=== PATIENT | female | born 2000 | race Caucasian/White ===

== ENCOUNTER 2022-08-06 21:06 | Outpatient (OUT) | payer OTHER, SELFPAY ==
[2022-08-09 11:09] LABS: Age Gdln ACOG Testing Note (.); IGP, rfx Aptima HPV ASCU Note (.)
== END 2022-08-06 21:07 | disposition home or self-care (01) ==
PROVIDERS: PCP Obstetrics & Gynecology; Visit Provider Obstetrics & Gynecology
DX: Z12.4 Encounter for screening for malignant neoplasm of cervix (principal)
CPT/HCPCS: G0145

== ENCOUNTER 2023-10-06 20:42 | Outpatient (REF) | payer OTHER, SELFPAY | END 2023-10-06 20:43 | disposition home or self-care (01) | LOC: LAB 20:42 | PROVIDERS: PCP Obstetrics & Gynecology; Visit Provider Physician Assistant | DX: Z01.419 Encounter for gynecological examination (general) (routine) without abnormal findings (principal) | CPT/HCPCS: 88175 ==

== ENCOUNTER 2023-10-11 13:57 | Outpatient (OUT) | payer OTHER, SELFPAY ==
--- NOTE | 2023-10-11 | US_ITS ---
The [address] [address] Patient Name: RENETTA REDDING MRN: [id number] date: 2000 Sex: F Assigned Patient Location: Current Patient Location: Accession/Order Number: [id number] Exam Date: 10/11/2023 14:09 Report Date: 10/15/2023 06:43 At the request of: ERASMO ALMENDAREZ Procedure: US pelvis w/ transvaginal EXAMINATION: US pelvis w/ transvaginal HISTORY: R10.2 Pelvic pain in female COMPARISON: No relevant comparison available. TECHNIQUE: Transabdominal and/or transvaginal sonographic examination was performed as indicated by examination type. FINDINGS: UTERUS: Normal size and appearance. Uterus size: 7.4 x 3.2 with 3.6 cm ENDOMETRIUM: Normal homogeneous appearance. Endometrial thickness: 2 mm RIGHT OVARY: Normal size and appearance. Duplex Doppler demonstrates normal waveform and flow; resistive index 0.5. Ovary size: 2.2 x 1.3 x 1.8 cm LEFT OVARY: Not seen; obscured by overlying bowel gas. Questionable slightly prominent vessels within left adnexa. CUL-DE-SAC: Trace amount of free fluid, likely physiologic. BLADDER: Unremarkable. OTHER: None. US/US pelvis w/ transvaginal IMPRESSION: 1. Left ovary was not seen; obscured by overlying bowel gas. 2. Otherwise unremarkable pelvis. Electronically authenticated by: EREN JACKSON Date: 10/15/2023 06:43
--- OUTSIDE RECORDS SUMMARY | 2023-10-11 13:59 | XMS_ITS | CCD ---
Author Organization [facility] Inform ion Partnership [facility] Care Team Providers Care X Ray Equipment Servicer Name Role Phone RODY, DR BURT Primary Care Unavailable SAGE, DR ROSSI Admitting Unavailable SAGE, DR ROSSI Consulting Unavailable SAGE, DR ROSSI Attending Unavailable HEMMER, DR SRINATH Oliveira Attending Unavailable RODY, DR BURT Primary Care Unavailable HEMMER, DR SRINATH Oliveira Admitting Unavailable HEMMER, DR SRINATH Oliveira Consulting Unavailable EARLE, SUSIE Oliveira Attending Unavailable HEMMER, SRINATH Oliveira Attending Unavailable EARLE, SUSIE Oliveira Attending Unavailable ERICKSONERASMO Attending Unavailable Problems Active Problems Problem Classification Problem Date Documented Date Episodic/Chronic Headache; including migraine (1 source) Migraine, unspecified, not intractable, without status migrainosus; Translations: [MIGRAINE UNS NOT INTRACT W/O SM] Onset: 10-23-2020 Chronic Immunizations and screening for infectious disease (1 source) Encounter for screening for human papillomavirus (HPV); Translations: [ENC SCREENING HUMAN PAPILLOMAVIRUS] Onset: 08-03-2021 Episodic Other screening for suspected conditions (not mental disorders or infectious disease) (4 sources) Encounter for screening for malignant neoplasm of cervix; Translations: [ENC SCREENING MALIG NEOPLASM CERV] Onset: 07-31-2021 Episodic Unclassified (3 sources) CONTACT W/AND (SUSP) EXPOS COVID-19; Translations: [CONTACT W/AND (SUSP) EXPOS COVID-19] Onset: 10-23-2020 Past or Other Problems Problem Classification Problem Date Documented Da te Episodic/Chronic Other lower respiratory disease (1 source) Cough; Translations: [COUGH] Onset: 10-23-2020 Episodic Unclassified (1 source) CONTACT W/AND (SUSP) EXPOS COVID-19; Translations: [CONTACT W/AND (SUSP) EXPOS COVID-19] Onset: 10-17-2020 Results Test Name Value Interpretation Reference Range Facil ity PAP ACOG PANEL 2: 21 to 29on 08-03-2021 . . Normal [facility] Comment on above: Performed By: #### [id number] #### [facility] [address] [address] [address] John Dominguez Age Gdln ACOG Testing 21-29 Normal [facility] Comment on above: Performed By: #### [id number] #### [facility] [address] [address] [address] John Dominguez DIAGNOSIS: Comment Normal [facility] Comment on above: Result Comment: NEGATIVE FOR INTRAEPITHE LIAL LESION OR MALIGNANCY. Performed By: #### [id number] #### [facility] [address] [place] [address] Dr. John Dominguez Methodology: Comment [facility] Comment on above: Result Comment: This liquid based ThinPr ep(R) pap test was screened with the use of an image guided system. Performed By: #### [id number] #### [facility] [address] [place] [address] Dr. John Dominguez Note: Comment [facility] Comment on above: Result Comment: The Pap smear is a scree sabrina test designed to aid in the detection of premalignant and malignant conditions of the uterine cervix. It is not a diagnostic procedure and should not be used as the sole means of detecting cervical cancer. Both false-positive and false-negative reports do occur. . Performed By: #### [id number] #### [facility] [address] [address] [address] John Dominguez Performed by: Comment Normal [facility] Comment on above: Result Comment: Malaika Noyola [employer]otechfer[employer] ologist (ASCP) Performed By: #### [id number] #### [facility] [address] [place] [address] Dr. John Dominguez Reflex Criteria: Comment [facility] Comment on above: Result Comment: The HPV DNA reflex crite willian were not met with this specimen result therefore, no HPV testing was performed. . Performed By: #### [id number] #### [facility] [address] [place], [place] [address] Dr. John Dominguez Specimen adequacy: Comment Normal [facility] Comment on above: Result Comment: Satisfactory for evaluat ion. Endocervical and/or squamous metaplastic cells (endocervical component) are present. Performed By: #### [id number] #### [facility] [address] [place], [place] [address] Dr. John Dominguez [facility]25 SARS-CoV-2 (COVID-19) RNA TASHA+probe Ql (Unsp spec) Not detected Normal NOT DETECTED [facility] Comment on above: Result Comment: This test is not yet jerrell roved or cleared by the [place] FDA. When there are no FDA-approved or cleared tests available, and other criteria are met, FDA can make tests available under an emergency access mechanism called an Emergency Use Authorization (EUA). The EUA for this test is supported by the [place] of Health and Human Service's (HHS's) declaration that circumstances exist to justify the emergency use of in vitro diagnostics for the detection and/or diagnosis of the virus that causes COVID-19. This EUA will remain in effect (meaning this test can be used) for the duration of the COVID-19 declaration justifying emergency of IVDs, unless it is terminated or revoked by FDA (after which the test may no longer be used). When diagnostic testing is negative, the possibility of a false negative should be considered in the context of a patient's recent exposures and the presence of clinical signs and symptoms consistent with SARS-CoV-2. Performed By: #### C VDTB #### [facility] [address] [place], [place] [address] Ita Carbajal Encounters Encounter Date Encounter Type Care Provider Facility Start: 10-06-2023 End: 10-06-2023 ambulatory REASMO ALMENDAREZ Not Available Start: 07-17-2023 End: 07-17-2023 ambulatory SUSIE OG Not Available Start: 06-09-2023 End: 06-09-2023 ambulatory SRINATH ENRIQUE Not Available Start: 03-12-2023 End: 03-12-2023 ambulatory SUSIE OG Not Available Start: 07-31-2021 End: 07-31-[address] JAVED FINE Facility:[facility] Start: 10-17-2020 End: 10-18-[address] SRINATH ENRIQUE Facility:[facility] Payers Date Payer Category Payer Unknown [id number] 2000 Unknown [id number] 2.16.84 [id number] 2000 Unknown [id number] 2.16.84 [id number] 2000 Unknown [id number] 2.16.84 [id number] 2000 Unknown [id number] 2.16.84 [id number] 2000 Unknown [id number] 2.16.84 [id number] 2000 Unknown [id number] 2.16.84 [id number] 1959 Unknown [id number] 1961 Unknown [id number] Summary Purpose Family History No Family History Records FoundNo Family History Records Found Advance Directives No Advanced Directives Records FoundNo Advanced Directives Records Found Additional Source Comments INFORMATION SOURCE (unrecogn ized section and content) DATE CREATED AUTHOR [facility]/04/2021 [facility] DATE CREATED AUTHOR AUTHOR'S ORGANIZ ATHILLARY 10/08/2023 [facility] FOR RECORDS PERTAINING TO PATIENTS WHO ARE OR HAVE BEEN ENROLLED IN A CHEMICAL DEPENDENCY/SUBSTANCEABUSE PROGRAM, SOME INFORMATION MAY BE OMITTED. This clinical summary was aggregated from multiple sources. Caution should be exercised in using it in the provision of clinical care. This summary normalizes information from multiple sources, and as a consequence, information in this document may materially change the coding, format and clinical context of patient data. In addition, data may be omitted in some cases. CLINICAL DECISIONS SHOULD BE BASED ON THE PRIMARY CLINICAL RECORDS. [facility] [employer] [facility]. provides no warranty or guarantee of the accuracy or completeness of information in this document.
== END 2023-10-11 13:58 | disposition home or self-care (01) ==
LOC: US 13:57
PROVIDERS: PCP Obstetrics & Gynecology; Visit Provider Physician Assistant
DX: R10.2 Pelvic and perineal pain (principal)
CPT/HCPCS: 76830; 76856

== ENCOUNTER 2023-11-10 15:01 | Outpatient (OUT) | payer OTHER, SELFPAY ==
[2023-11-10 15:27] LABS: Basophils Absolute Auto 0.1 10^3/uL (0.0-0.1); Basophils Percent Auto 0.6 % (0.2-2.0); Eosinophils Percent Auto 0.4 % (0.9-7.0); Hematocrit 40.7 % (36.0-48.0); Hemoglobin 14.5 g/dL (12.0-16.0); Immature Granulocytes Abs Auto 0.01 10^3/uL (0.00-0.03); Immature Granulocytes Pct Auto 0.1 % (0.0-0.5); Lymphocytes Absolute Auto 2.7 10^3/uL (1.2-3.8); Lymphocytes Percent Auto 33.8 % (20.5-60.0); Mean Corpuscular HGB Conc 35.6 g/dL (29.9-35.2); Mean Corpuscular Hemoglobin 32.4 pg (26.7-34.0); Mean Corpuscular Volume 90.8 fL (81.0-99.0); Mean Platelet Volume 9.1 fL (9.5-13.5); Monocytes Absolute Auto 0.5 10^3/uL (0.3-0.8); Monocytes Percent Auto 5.9 % (1.7-12.0); Neutrophils Absolute Auto 4.8 10^3/uL (1.4-6.5); Neutrophils Percent Auto 59.2 % (43.0-75.0); Platelet Count 326 10^3/uL (150-450); Red Blood Count 4.48 10^6/uL (4.20-5.40); Red Cell Distribution Width 11.5 % (11.0-15.0); White Blood Count 8.1 10^3/uL (4.0-11.0)
[2023-11-10 16:03] LABS: Thyroid Stimulating Hormone 1.919 uIU/mL (0.358-3.740)
[2023-11-10 16:07] LABS: Free T4 0.85 ng/dL (0.76-1.46)
[2023-11-10 16:17] LABS: Estimated Average Glucose 88 mg/dL; Glycohemoglobin A1C 4.7 % (4.5-6.2)
[2023-11-10 16:21] LABS: HCG Quantitative <1 mIU/mL
[2023-11-11 04:08] LABS: FSH 2.1 mIU/mL (.)
[2023-11-11 08:19] LABS: Luteinizing Hormone(LH) 3.8 mIU/mL (.)
[2023-11-14 07:09] LABS: DHEA, Serum 191 ng/dL (31-701)
== END 2023-11-10 15:02 | disposition home or self-care (01) ==
LOC: LAB 15:02
PROVIDERS: PCP Obstetrics & Gynecology; Visit Provider Obstetrics & Gynecology
DX: N92.6 Irregular menstruation, unspecified (principal); E28.2 Polycystic ovarian syndrome
CPT/HCPCS: 36415; 82626; 82627; 83001; 83002; 83036; 84439; 84443; 84702; 85025

== ENCOUNTER 2024-02-06 15:43 | Outpatient (OUT) | payer OTHER, SELFPAY ==
--- OUTSIDE RECORDS SUMMARY | 2024-02-06 15:47 | XMS_ITS | CCD ---
Author Organization [facility] Inform ion Partnership [facility] Care Team Providers Care Access Lead Name Role Phone DR JAVED FINE Primary Care Unavailable KRISTOFER, DR ROSSI Admitting Unavailable KRISTOFER, DR ROSSI Consulting Unavailable KRISTOFER, DR ROSSI Attending Unavailable HEMMER, DR RAVEN Oliveira Attending Unavailable RODY, DR BURT Primary Care Unavailable IVA, DR RAVEN Oliveira Admitting Unavailable IVA, DR RAVEN Oliveira Consulting Unavailable Raven Mcfarland Primary Care Provider [phone] SUSIE OG Attending Unavailable RAVEN ENRIQUE Attending Unavailable SUSIE OG Attending Unavailable ERASMO ALMENDAREZ Attending Unavailable ENID MINER Attending Unavailable VIVIEN BRADSHAW Attending Unavailable RAVEN ENRIQUE Attending Unavailable TRISHA TADEO Attending Unavailable RAVEN ENRIQUE Referring Unavailable DANIEL JAIMES Attending Unavailable RAVEN ENRIQUE Referring Unavailable Allergies Allergy Classification Reported Allergen(s) Allergy Type Date of Onset Reaction(s) Facility (14 sources) Azithromycin Drug Allergy 08-06-2022 [facility] Medications Current Medications Medication Drug Class(es) Dates Sig (Normalized) Sig (Original) adapalene 0.001 mg/mg / benzoyl peroxide 0.025 mg/mg topical gel (14 sources) Retinoid Start: 10-06-2023 Adapalene-Benzoyl Peroxide 0.1-2.5 % gel Indications: Acne, unspecified acne type Apply pea-size amount to T-zone, chin and problem areas nightly. 45 g 10/06/2023 Active amphetamine aspartate 7.5 mg / amphetamine sulfate 7.5 mg / dextroamphetamine saccharate 7.5 mg / dextroamphetamine sulfate 7.5 mg oral tablet (16 sources) Central Nervous System Stimulant Start: 10-08-2023 End: 12-25-2023 take 1 tablet by mouth once daily amphetamine-dextroa mphetamine (Adderall) 30 MG tablet Indications: Attention deficit hyperactivity disorder (ADHD), unspecified ADHD type (CMS/HCC) Take 1 tablet (30 mg) by mouth 1 (one) time each day at the same time 30 tablet 12/25/2023 Active 24 hr buPROPion hydrochloride 150 mg extended release oral tablet (14 sources) Aminoketone Start: 04-01-2023 take 1 tablet by mouth every twenty-four hours in the morning buPROPion XL (Wellbutrin XL) 150 MG 24 hr tablet Indications: Mixed anxiety and depressive disorder TAKE 1 TABLET (150 MG) BY MOUTH IN THE MORNING 90 tablet 5 04/01/2023 Active desogestrel 0.15 mg / ethinyl estradiol 0.03 mg oral tablet (13 sources) Progestin, Estrogen Start: 11-10-2023 End: 12-08-2023 take 1 tablet by mouth once daily, then take 1 tablet by mouth once daily desogestrel-ethinyl estradiol (Apri) 0.15-30 MG-MCG tablet Indications: Irregular periods/menstrual cycles , PCOS (polycystic ovarian syndrome) Take 1 tablet by mouth Daily for 28 days Take 1 tablet by mouth daily 28 tablet 11 11/10/2023 Active 24 hr metFORMIN hydrochloride 500 mg extended release oral tablet (13 sources) Biguanide Start: 11-10-2023 End: 12-10-2023 take 1 tablet by mouth every twenty-four hours at mealtime metFORMIN XR (Glucophage-XR) 500 MG 24 hr tablet Indications: Irregular periods/menstrual cycles , PCOS (polycystic ovarian syndrome) Take 1 tablet (500 mg) by mouth in the evening. Take with meals Do not crush, chew, or split. 30 tablet 11 11/10/2023 Active Multiple Vitamin (MULTIVITAMINS PO) (14 sources) take 1 tablet by mouth once daily Multiple Vitamin (MULTIVITAMINS PO) Take 1 tablet by mouth 1 (one) time each day. Active predniSONE 10 mg oral tablet (4 sources) Start: 01-21-2024 End: 01-29-2024 take 1 tablet by mouth three times daily, then take 1 tablet by mouth twice daily, then take 1 tablet by mouth once daily predniSONE (Deltasone) 10 MG tablet Indications: Neck pain Take 1 tablet (10 mg) by mouth 3 (three) times a day for 3 days, THEN 1 tablet (10 mg) 2 (two) times a day for 3 days, THEN 1 tablet (10 mg) Daily for 3 days. 18 tablet 01/21/2024 01/29/2024 Active rimegepant 75 mg disintegrating oral tablet (14 sources) Start: 10-08-2023 take 1 tablet by mouth every other day as needed Rimegepant Sulfate (Nurtec) 75 MG tablet dispersible Indications: Episodic migraine (CMS/HCC) Take 1 tablet by mouth See administration instructions Every other day as needed for migraines. 8 tablet 5 10/08/2023 Active tiZANidine 4 mg oral tablet (6 sources) Central alpha-2 Adrenergic Agonist Start: 01-21-2024 End: 01-31-2024 take 1 tablet by mouth once tiZANidine (Zanaflex) 4 MG tablet Indications: Trapezius muscle spasm Take 1 tablet (4 mg) by mouth every 12 (twelve) hours if needed for muscle spasms for up to 10 days 20 tablet 01/21/2024 01/31/2024 Active Completed/Discontinued Medications Medication Drug Class(es) Dates Sig (Normalized) Sig (Original) baclofen 10 mg oral tablet (10 sources) gamma-Aminobuty abhishek Acid-ergic Agonist Start: 07-02-2023 End: 01-21-2024 take 1 tablet by mouth twice daily as needed for muscle spasms baclofen (Lioresal) 10 MG tablet Indications: Trapezius muscle spasm TAKE 1 TABLET (10 MG) BY MOUTH 2 (TWO) TIMES A DAY NEEDED FOR MUSCLE SPASMS 180 tablet 1 07/02/2023 01/21/2024 Discontinued (Ineffective) cholecalciferol 0.125 mg oral capsule (3 sources) Vitamin D Start: 06-17-2022 End: 11-10-2023 take 1 capsule by mouth once daily cholecalciferol (Vitamin D-3) 125 MCG (5000 UT) capsule Take 1 capsule by mouth 1 (one) time each day at the same time. 06/17/2022 11/10/2023 Discontinued ethinyl estradiol 0.03 mg / norethindrone acetate 1.5 mg oral tablet (10 sources) Estrogen Start: 10-30-2023 End: 01-21-2024 take 1 tablet by mouth once daily in the morning 1.5-30 MG-MCG tablet tablet Indications: control counseling TAKE 1 TABLET BY MOUTH EVERY DAY IN THE MORNING 21 tablet 3 10/30/2023 01/21/2024 Discontinued Problems Active Problems Problem Classification Problem Date Documented Date Episodic/Chronic Anxiety disorders (14 sources) Mixed anxiety and depressive disorder; Translations: [Other specified anxiety disorders] Onset: 08-05-2022 08-05-2022 Chronic Attention-deficit, conduct, and disruptive behavior disorders (16 sources) Attention deficit hyperactivity disorder; Translations: [Attention-deficit hyperactivity disorder, unspecified type] Onset: 08-05-2022 08-05-2022 Chronic Esophageal disorders (14 sources) Gastroesophageal reflux disease without esophagitis; Translations: [Gastro-esophageal reflux disease without esophagitis] Onset: 08-05-2022 08-05-2022 Chronic Headache; including migraine (15 sources) Migraine, unspecified, not intractable, without status migrainosus; Translations: [Migraine, unspecified, without mention of intractable migraine without mention of status migrainosus] Onset: 10-23-2020 09-22-2023 Chronic Immunizations and screening for infectious disease (1 source) Encounter for screening for human papillomavirus (HPV); Translations: [ENC SCREENING HUMAN PAPILLOMAVIRUS] Onset: 08-03-2021 Episodic Malaise and fatigue (14 sources) Fatigue; Translations: [Chronic fatigue, unspecified] Onset: 08-05-2022 08-05-2022 Chronic Menstrual disorders (2 sources) Irregular periods; Translations: [Irregular menstruation, unspecified] 11-10-2023 Chronic Mood disorders (20 sources) Depressive disorder; Translations: [Depression] Onset: 08-05-2022 08-05-2022 Chronic Nutritional deficiencies (14 sources) Vitamin D deficiency; Translations: [Vitamin D deficiency, unspecified] Onset: 08-05-2022 08-05-2022 Chronic Other connective tissue disease (20 sources) Muscle spasm of cervical muscle of neck; Translations: [Other muscle spasm] Onset: 06-09-2023 06-09-2023 Episodic Other endocrine disorders (2 sources) Polycystic ovary syndrome; Translations: [Polycystic ovarian syndrome] 11-10-2023 Chronic Other screening for suspected conditions (not mental disorders or infectious disease) (4 sources) Encounter for screening for malignant neoplasm of cervix; Translations: [ENC SCREENING MALIG NEOPLASM CERV] Onset: 07-31-2021 Episodic Other upper respiratory disease (14 sources) Allergic rhinitis due to pollen; Translations: [Allergic rhinitis due to pollen] Onset: 08-05-2022 08-05-2022 Chronic Spondylosis; intervertebral disc disorders; other back problems (20 sources) Neck pain; Translations: [Cervicalgia] Onset: 06-09-2023 06-09-2023 Episodic Unclassified (3 sources) CONTACT W/AND (SUSP) EXPOS COVID-19; Translations: [CONTACT W/AND (SUSP) EXPOS COVID-19] Onset: 10-23-2020 Past or Other Problems Problem Classification Problem Date Documented Da te Episodic/Chronic Anxiety disorders (14 sources) Feeling irritable; Translations: [Irritability and anger] Onset: 08-05-2022 08-05-2022 Episodic Coagulation and hemorrhagic disorders (14 sources) Easy bruising; Translations: [Spontaneous ecchymoses] Onset: 08-05-2022 08-05-2022 Episodic Fracture of lower limb (14 sources) Closed fracture of patella; Translations: [Unspecified fracture of unspecified patella, initial encounter for closed fracture] Onset: 05-21-2013 06-09-2023 Episodic Other circulatory disease (14 sources) Orthostatic hypotension; Translations: [Orthostatic hypotension] Onset: 08-05-2022 08-05-2022 Episodic Other disorders of stomach and duodenum (14 sources) Stomach problem; Translations: [Disease of stomach and duodenum, unspecified] Onset: 08-05-2022 08-05-2022 Episodic Other female genital disorders (14 sources) Disorder of female genital system; Translations: [Unspecified condition associated with female genital organs and menstrual cycle] Onset: 08-05-2022 08-05-2022 Episodic Other female genital disorders (14 sources) Vaginal lump; Translations: [Unspecified condition associated with female genital organs and menstrual cycle] Onset: 08-05-2022 08-05-2022 Episodic Other gastrointestinal disorders (14 sources) Constipation alternates with diarrhea; Translations: [Other specified symptoms and signs involving the digestive system and abdomen] Onset: 08-05-2022 08-05-2022 Episodic Other lower respiratory disease (1 source) Cough; Translations: [COUGH] Onset: 10-23-2020 Episodic Other nutritional; endocrine; and metabolic disorders (14 sources) Body mass index 25-29 - overweight; Translations: [Overweight] Onset: 08-05-2022 08-05-2022 Episodic Syncope (20 sources) Vasovagal syncope; Translations: [Syncope and collapse] Onset: 08-05-2022 Resolved: 09-12-2022 09-12-2022 Episodic Unclassified (1 source) CONTACT W/AND (SUSP) EXPOS COVID-19; Translations: [CONTACT W/AND (SUSP) EXPOS COVID-19] Onset: 10-17-2020 Results Test Name Value Interpretation Reference Range Facility ALL CBC WITH AUTO DIFFon BASOPHILS ABSOLUTE AUTO 0.1 [facility] Basophils/100 WBC (Bld) 0.6 % 0.2 - 2.0 % [facility] Eosinophils/100 WBC (Bld) 0.4 % Low 0.9 - 7.0 % [facility] Erythrocyte distribution width (RBC) [Ratio] 11.5 % 11.0 - 15.0 % [facility] Hematocrit (Bld) [Volume fraction] 40.7 % 36.0 - 48.0 % [facility] Hem[facility] (Bld) [Mass/Vol] 14.5 g/dL 12.0 - 16.0 g/dL [facility] IMMATURE GRANULOCYTES ABS AUTO 0.01 [facility] Immature granulocytes/100 WBC (Bld) 0.1 % 0.0 - 0.5 % [facility] Interpretation and review of laboratory results Abnormal [facility] LYMPHOCYTES ABSOLUTE AUTO 2.7 [facility] Lymphocytes/100 WBC (Bld) 33.8 % 20.5 - 60.0 % [facility] MCH (RBC) [Entitic mass] 32.4 pg 26.7 - 34.0 pg [facility] MCHC (RBC) [Mass/Vol] 35.6 g/dL High 29.9 - 35.2 g/dL [facility] MCV (RBC) [Entitic vol] 90.8 fL 81.0 - 99.0 fL [facility] MONOCYTES ABSOLUTE AUTO 0.5 [facility] Monocytes/100 WBC (Bld) 5.9 % 1.7 - 12.0 % [facility] NEUTROPHILS ABSOLUTE AUTO 4.8 [facility] Neutrophils/100 WBC (Bld) 59.2 % 43.0 - 75.0 % [facility] Platelet mean volume (Bld) [Entitic vol] 9.1 fL Low 9.5 - 13.5 fL [facility]O # 0.0 [facility] PLT 326 [facility] RBC 4.48 [facility] TB WBC 8.1 [facility] Urinalysis macro (dipstick) panel (U)on 11-10-2023 Bilirubin, UA Negative Negative - 4(70) +++ mg/dL [facility] Blood, UA Negative Negative - 50 Deny/mcL [facility] Clarity, UA Clear [facility] re Color, UA Yellow [facility] e Glucose, UA Negative Negative - 1999(110) ++++ mg/dL [facility] Interpretation and review of laboratory results Normal [facility] Ketones, UA Negative Negative - 160(16) ++++ mg/dL [facility] Leukocytes, UA Negative Negative - 500+++ Jaelyn/mcL [facility] Nitrite, UA Negative Negative - Positive [facility] pH, UA 6.5 5 - 9 [facility] e Protein, UA Negative Negative - 1999(20) ++++ mg/dL [facility] Spec Grav, UA 1.020 1 - 1.03 [facility] Urobilinogen, UA 0.2 0.2 - 12 mg/dL [facility] PAP ACOG PANEL 2: 21 to 29on 08-03-2021 . . Normal [facility] Comment on above: Performed By: #### [id number] #### [facility] [address] [address] [address] John Dominguez Age Gdln ACOG Testing 21-29 Normal [facility] Comment on above: Performed By: #### [id number] #### [facility] [address] [address] [address] John Dominguez DIAGNOSIS: Comment [facility] Comment on above: Result Comment: NEGA TIVE FOR INTRAEPITHELIAL LESION OR MALIGNANCY. Performed By: #### [id number] #### [facility] [address] [address] [address] John Dominguez Methodology: Comment [facility] Comment on above: Result Comment: This liquid based ThinPrep(R) pap test was screened with the use of an image guided system. Performed By: #### [id number] #### [facility] [address] [place] [address] Dr. John Dominguez Note: Comment Normal [facility] Comment on above: Result Comment: The Pap smear is a screening test designed to aid in the detection of premalignant and malignant conditions of the uterine cervix. It is not a diagnostic procedure and should not be used as the sole means of detecting cervical cancer. Both false-positive and false-negative reports do occur. . Performed By: #### [id number] #### [facility] [address] [place] [address] Dr. John Dominguez Performed by: Comment Normal [facility] Comment on above: Result Comment: Ute Noyola, Clinical Research Management Associate (ASCP) Performed By: #### [id number] #### [facility] [address] [place] [address] Dr. John Dominguez Reflex Criteria: Comment Normal [facility] Comment on above: Result Comment: The HPV DNA reflex criteria were not met with this specimen result therefore, no HPV testing was performed. . Performed By: #### [id number] #### [facility] [address] [place] [address] Dr. John Dominguez Specimen adequacy: Comment Normal [facility] Comment on above: Result Comment: Sati sfactory for evaluation. Endocervical and/or squamous metaplastic cells (endocervical component) are present. Performed By: #### [id number] #### [facility] [address] [place] [address] Dr. John Dominguez [facility]on [facility]-25 SARS-CoV-2 (COVID-19) RNA TASHA+probe Ql (Unsp spec) Not detected Normal NOT DETECTED [facility] Comment on above: Result Comment: This test is not yet approved or cleared by the [place] FDA. When there are no FDA-approved or cleared tests available, and other criteria are met, FDA can make tests available under an emergency access mechanism called an Emergency Use Authorization (EUA). The EUA for this test is supported by the [place] of Health and Human Service's (HHS's) declaration [...] consistent with SARS-CoV-2. Performed By: #### C [facility] #### [facility] [address] [place] [address] Ita Carbajal Vital Signs Date Time Vital Sign Value Performing Clinician Cisco silva 01-21-2024 15:31-0500 Body mass index (BMI) [Ratio] 28.29 kg/m2 Raven Hemmer PA Work Phone: [facility] 01-21-2024 15:31-0500 Body weight 81.92 kg Raven Hemmer PA Work Phone: [facility] 01-21-2024 15:31-0500 Diastolic blood pressure 75 mm[Hg] Raven Hemmer PA Work Phone: [facility] 01-21-2024 15:31-0500 Heart rate 97 /min Raven Hemmer PA Work Phone: [facility] 01-21-2024 15:31-0500 Respiratory rate 16 /min Raven Hemmer PA Work Phone: [facility] 01-21-2024 15:31-0500 SaO2% (BldA) [Mass fraction] 99 % Raven Hemmer PA Work Phone: [facility] 01-21-2024 15:31-0500 Systolic blood pressure 115 mm[Hg] Raven Hemmer PA Work Phone: [facility] 12-25-2023 16:30-0400 Body height 170.2 cm Vivien Bradshaw ELECTRIC MELT OPERATOR Work Phone: [facility] 12-25-2023 16:30-0400 Body mass index (BMI) [Ratio] 28.04 kg/m2 Vivien Bradshaw ELECTRIC MELT OPERATOR Work Phone: [facility] 12-25-2023 16:30-0400 Body weight 81.19 kg Vivien Bradshaw ELECTRIC MELT OPERATOR Work Phone: [facility] 12-25-2023 16:30-0400 Diastolic blood pressure 66 mm[Hg] Vivien Bradshaw ELECTRIC MELT OPERATOR Work Phone: [facility] 12-25-2023 16:30-0400 Heart rate 78 /min Vivien Bradshaw ELECTRIC MELT OPERATOR Work Phone: [facility] 12-25-2023 16:30-0400 SaO2% (BldA) [Mass fraction] 98 % Vivien Bradshaw ELECTRIC MELT OPERATOR Work Phone: [facility] 12-25-2023 16:30-0400 Systolic blood pressure 124 mm[Hg] Vivien Bradshaw ELECTRIC MELT OPERATOR Work Phone: [facility] 11-10-2023 13:59-0400 Body mass index (BMI) [Ratio] 28.88 kg/m2 Enid Kristofer DO Work Phone: [facility] 11-10-2023 13:59-0400 Body weight 83.64 kg Enid Kristofer DO Work Phone: [facility] 11-10-2023 13:59-0400 Diastolic blood pressure 60 mm[Hg] Enid Kristofer DO Work Phone: [facility] 11-10-2023 13:59-0400 Systolic blood pressure 110 mm[Hg] Enid Kristofer DO Work Phone: [facility] Healthcare Encounters Encounter Date Encounter Type Care Provider Facility Start: 01-30-2024 End: 01-30-2024 ambulatory Daniel Jaimes PTA [facility] Comment on above: Neck pain (Primary D x); Trapezius muscle spasm Start: 01-30-2024 End: 01-30-2024 Bamboo flowsheet Daniel Jaimes BRAINER [facility] Start: 01-30-2024 End: 01-30-2024 Bamboo flowsheet Daniel Jaimes BRAINER [facility] Start: 01-28-2024 End: 01-28-2024 Telephone encounter Trisha Xiao Ebonysarah PT Work Phone: [facility] Comment on above: PT for neck / back Start: 01-28-2024 End: 01-28-2024 ambulatory Trisha Xiao Ebonysarah PT Work Phone: [facility] Comment on above: Neck pain (Primary D x); Trapezius muscle spasm Start: 01-21-2024 End: 01-21-2024 Office outpatient visit 15 minutes Raven Enrique PA Work Phone: [facility] Comment on above: Neck pain (Primary D x); Trapezius muscle spasm Start: 01-21-2024 End: 01-21-2024 ambulatory RAVEN ENRIQUE Not Available Start: 01-21-2024 End: 01-21-2024 Bamboo flowsheet Raven Enrique PA Work Phone: [facility] Start: 01-21-2024 End: 01-21-2024 Bamboo flowsheet Raven Enrique PA Work Phone: [facility] Start: 12-25-2023 End: 12-25-2023 ambulatory VIVIEN BRADSHAW Not Available Start: 12-25-2023 End: 12-25-2023 Office outpatient visit 25 minutes Vivien Bradshaw ELECTRIC MELT OPERATOR Work Phone: [facility] Comment on above: Attention deficit hy peractivity disorder (ADHD), unspecified ADHD type (CMS/HCC); Major depressive disorder, recurrent, mild (HCC) (CMS/HCC) Start: 12-25-2023 End: 12-25-2023 Bamboo flowsheet Vivien Bradshaw ELECTRIC MELT OPERATOR Work Phone: [facility] Start: 12-25-2023 End: 12-25-2023 Bamboo flowsheet Vivien Bradshaw ELECTRIC MELT OPERATOR Work Phone: [facility] Start: 11-10-2023 End: 11-10-2023 Bamboo flowsheet Enid Kristofer DO Work Phone: [facility] Start: 11-10-2023 End: 11-10-2023 Bamboo flowsheet Enid Kristofer DO Work Phone: [facility] Start: 11-10-2023 End: 11-10-2023 [facility] Result Encounter Enid Kristofer DO Work Phone: [facility] External Department Unsolicited Start: 11-10-2023 End: 11-10-2023 ambulatory ENID KRISTOFER Not Available Start: 11-10-2023 End: 11-10-2023 Office outpatient visit 15 minutes Enid Kristofer DO Work Phone: [facility] Comment on above: Irregular periods/me nstrual cycles; PCOS (polycystic ovarian syndrome) Start: 10-06-2023 End: 10-06-2023 ambulatory ERASMO ALMENDAREZ Not Available Start: 07-17-2023 End: 07-17-2023 ambulatory SUSIE OG Not Available Start: 06-09-2023 End: 06-09-2023 ambulatory RAVEN ENRIQUE Not Available Start: 03-12-2023 End: 03-12-2023 ambulatory SUSIE OG Not Available Start: 07-31-2021 End: 07-31-[address] JAVED FINE Facility:[facility] Start: 10-17-2020 End: 10-18-[address] RAVEN ENRIQUE Facility:[facility] Procedures Date Procedure Procedure Detail Performing Clinician Start: 11-10-2023 Urnls dip stick/tabl et rgnt non-auto w/o micrscp Enid Kristofer DO Work Phone: Start: 11-10-2023 ALL CBC WITH AUTO DIFF Enid Kristofer DO Work Phone: Plan of Treatment Date Care Activity Detail Author Start: 10-11-2024 End: 10-11-2024 Patient encounter procedure 10/11/2024 4:00 PM EDT Office Visit [facility] [address] [place] [address] Enid Miner DO [address] [place] [address] [facility] Start: 02-12-2024 End: 02-12-2024 ambulatory 02/12/2024 4:30 PM EST Treatment [facility] [address] [place] [address] Trisha Tadeo, PT [address] [place] [address] [facility] Start: 02-12-2024 End: 02-12-2024 Patient encounter procedure 02/12/2024 3:30 PM EST Office Visit [facility] [address] [place] [id number] Raven Enrique, PA [address] [place] [address] [facility] Start: 02-10-2024 End: 02-10-2024 ambulatory 02/10/2024 3:00 PM EST Treatment [facility] [address] [facility] [address] [place] [address] Dorys Dalton, BRAINER [facility] Start: 02-09-2024 End: 02-09-2024 Patient encounter procedure 02/09/2024 8:10 AM EST Office Visit [facility] [address] [place] [address] Enid Miner, DO [address] [place] [address] [facility] Start: 02-06-2024 End: 02-06-2024 ambulatory 02/06/2024 3:00 PM EST Treatment [facility] [address] [place] [id number] Daniel Jaimes, BRAINER [facility] Start: 02-04-2024 End: 02-04-2024 ambulatory 02/04/2024 3:30 PM EST Treatment [facility] [address] [place] [address] Dorys Dalton, CHARI [facility] Start: 02-03-2024 End: 02-03-2024 ambulatory 02/03/2024 3:00 PM EST Treatment [facility] [address] [place] [address] Trisha Tadeo, PT [address] [place] [address] [facility] Start: 01-30-2024 End: 01-30-2024 ambulatory [facility] Comment on above: Arrived Start: 01-28-2024 End: 01-28-2024 ambulatory 01/28/2024 1:00 PM EST Evaluation [facility] [address] [place] [address] Trisha Tadeo, PT [address] [place] [address] [facility] Start: 01-21-2024 End: 01-21-2024 Patient encounter procedure 01/21/2024 3:30 PM EST Office Visit [facility] [address] [place] [address] Raven Enrique, PA [address] [place] [address] Arrived [facility] Comment on above: Arrived Start: 01-21-2024 End: 01-20-2025 XR Cervical spine 4 or 5 Views XR CERVICAL SPINE AP/LAT/OBLIQUES Imaging Routine Neck pain Expected: 01/21/2024, Expires: 01/20/2025 [facility] Work Phone: Comment on above: Expected: 01/21/2024 , Expires: 01/20/2025 Start: 11-10-2023 End: 11-09-2024 DHEA DHEA Lab Routine Irregular periods/menstrual cycles PCOS (polycystic ovarian syndrome) Expected: 11/10/2023 (Approximate), Expires: 11/09/2024 [facility] Comment on above: Expected: 11/10/2023 (Approximate), Expires: 11/09/2024 Start: 10-26-2023 Influenza vaccination Influenza Vacc ine (#1) [facility] CBC W Auto Different ial panel - Blood CBC and differential Lab Routine Irregular periods/menstrual cycles PCOS (polycystic ovarian syndrome) Ordered: 11/10/2023 [facility] Comment on above: Ordered: 11/10/2023 DHEA-sulfate DHEA-sulfate Lab Routine Irregular periods/menstrual cycles PCOS (polycystic ovarian syndrome) Ordered: 11/10/2023 [facility] Comment on above: Ordered: 11/10/2023 Follicle stimulating hormone Follicle stimulating hormone Lab Routine Irregular periods/menstrual cycles PCOS (polycystic ovarian syndrome) Ordered: 11/10/2023 [facility] Comment on above: Ordered: 11/10/2023 hCG, quantitative, hCG, quantitative, Lab Routine Irregular periods/menstrual cycles PCOS (polycystic ovarian syndrome) Ordered: 11/10/2023 [facility] Work Phone: Comment on above: Ordered: 11/10/2023 Hemoglobin A1c/Hemoglobin.total in Blood Hemoglobin A1c Lab Routine Irregular periods/menstrual cycles PCOS (polycystic ovarian syndrome) Ordered: 11/10/2023 [facility] Comment on above: Ordered: 11/10/2023 Luteinizing hormone Luteinizing hormone Lab Routine Irregular periods/menstrual cycles PCOS (polycystic ovarian syndrome) Ordered: 11/10/2023 [facility] Comment on above: Ordered: 11/10/2023 Thyrotropin [Units/volume] in Serum or Plasma TSH Lab Routine Irregular periods/menstrual cycles PCOS (polycystic ovarian syndrome) Ordered: 11/10/2023 [facility] Comment on above: Ordered: 11/10/2023 Thyroxine (T4) free [Mass/volume] in Serum or Plasma T4, free Lab Routine Irregular periods/menstrual cycles PCOS (polycystic ovarian syndrome) Ordered: 11/10/2023 [facility] Comment on above: Ordered: 11/10/2023 Immunizations Immunization Date Immunization Notes Care Provider Wilmer acuna 12-10-2017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
--- NOTE | 2024-02-06 15:51 | XR_ITS ---
The [address] [address] Patient Name: RENETTA REDDING MRN: [id number] date: 2000 Sex: F Assigned Patient Location: [facility] Current Patient Location: Accession/Order Number: [id number] Exam Date: 02/06/2024 15:55 Report Date: 02/09/2024 07:40 At the request of: SRINATH ENRIQUE Procedure: XR cervical spine 5V EXAMINATION: XR cervical spine 5V HISTORY: Chronic neck pain, M54.2 COMPARISON: No relevant comparison available. FINDINGS: BONES: Reversal of cervical lordosis. No acute fracture or spondylolisthesis. No significant degenerative change DISC SPACES: Normal. No significant disc height narrowing, subluxation, or endplate abnormality. PARASPINOUS: Negative. No paraspinous abnormality is seen. OTHER: Negative. XR/XR cervical spine 5V IMPRESSION: Reversal of cervical lordosis Electronically authenticated by: JEAN RIVERS Date: 02/09/2024 07:40
== END 2024-02-06 15:44 | disposition home or self-care (01) ==
LOC: RAD 15:44
PROVIDERS: PCP Obstetrics & Gynecology; Visit Provider Physician Assistant
DX: M54.2 Cervicalgia (principal)
CPT/HCPCS: 72050

== ENCOUNTER 2024-10-11 19:10 | Outpatient (REF) | payer OTHER, SELFPAY ==
--- OUTSIDE RECORDS SUMMARY | 2024-10-11 19:16 | XMS_ITS | CCD ---
Author Organization [facility] Care Team Providers Care Pharmacist In Charge Owner Name Role Phone RODY, DR BURT Primary Care Unavailable KRISTOFER, DR ROSSI Admitting Unavailable KRISTOFER, DR ROSSI Consulting Unavailable KRISTOFER, DR ROSSI Attending Unavailable HEMMER, DR RAVEN Oliveira Attending Unavailable RODY, DR BURT Primary Care Unavailable HEMDOV, DR RAVEN Oliveira Admitting Unavailable HEMDOV, DR RAVEN Oliveira Consulting Unavailable HemRaven Vallejo Primary Care Provider RAVEN ENRIQUE Attending Unavailable RAVEN ENRIQUE Attending Unavailable HANNAH ALMENDAREZ Attending Unavailable NEID MINER Attending Unavailable VIVIEN BRADSHAW Attending Unavailable HEMRAVEN MONAE Attending Unavailable TRISHA TADEO Attending Unavailable RAVEN ENRIQUE Referring Unavailable DANIEL JAIMES Attending Unavailable HEMRAVEN MONAE Referring Unavailable RAVEN ENRIQUE Attending Unavailable Allergies Allergy Classification Reported Allergen(s) Allergy Type Date of Onset Reaction(s) Facility (20 sources) Azithromycin Drug Allergy 08-06-2022 [facility] Medications Current Medications Medication Drug Class(es) Dates Sig (Normalized) Sig (Original) adapalene 0.001 mg/mg / benzoyl peroxide 0.025 mg/mg topical gel (20 sources) Retinoid Start: 10-06-2023 Adapalene-Benzoyl Peroxide 0.1-2.5 % gel Indications: Acne, unspecified acne type Apply pea-size amount to T-zone, chin and problem areas nightly. 45 g 10/06/2023 Active amoxicillin 875 mg oral tablet (2 sources) Penicillin-class Antibacterial Start: 05-10-2024 End: 05-20-2024 take 1 tablet by mouth in the morning amoxicillin (Amoxil) 875 MG tablet Indications: Acute left otitis media Take 1 tablet (875 mg) by mouth in the morning and 1 tablet (875 mg) before bedtime. Do all this for 10 days. 20 tablet 05/10/2024 05/20/2024 Active amphetamine aspartate 7.5 mg / amphetamine sulfate 7.5 mg / dextroamphetamine saccharate 7.5 mg / dextroamphetamine sulfate 7.5 mg oral tablet (20 sources) Central Nervous System Stimulant Start: 06-18-2024 End: 09-15-2024 take 1 tablet by mouth once daily amphetamine-dextro amphetamine (Adderall) 30 MG tablet Indications: Attention deficit hyperactivity disorder (ADHD), unspecified ADHD type Take 1 tablet (30 mg) by mouth 1 (one) time each day at the same time 30 tablet 08/16/2024 Active Start: 10-08-2023 End: 06-09-2024 take 1 tablet by mouth once daily amphetamine-dextroamphetamine (Adderall) 30 MG tablet Indications: Attention deficit hyperactivity disorder (ADHD), unspecified ADHD type (CMS/HCC) Take 1 tablet (30 mg) by mouth 1 (one) time each day at the same time 30 tablet 05/10/2024 06/09/2024 Active 24 hr buPROPion hydrochloride 300 mg extended release oral tablet (20 sources) Aminoketone Start: 07-12-2024 take 1 tablet by mouth every twenty-four hours in the morning buPROPion XL (Wellbutrin XL) 300 MG 24 hr tablet Indications: Mixed anxiety and depressive disorder TAKE 1 TABLET (300 MG) BY MOUTH IN THE MORNING 90 tablet 1 07/12/2024 Active Start: 05-04-2024 take 1 tablet by south th every twenty-four hours in the morning buPROPion XL (Wellbutrin XL) 150 MG 24 hr tablet Indications: Mixed anxiety and depressive disorder TAKE 1 TABLET (150 MG) BY MOUTH IN THE MORNING 100 tablet 3 05/04/2024 Active Start: 04-01-2023 take 1 tablet by south th every twenty-four hours in the morning buPROPion XL (Wellbutrin XL) 150 MG 24 hr tablet Indications: Mixed anxiety and depressive disorder TAKE 1 TABLET (150 MG) BY MOUTH IN THE MORNING 90 tablet 5 04/01/2023 Active desogestrel 0.15 mg / ethinyl estradiol 0.03 mg oral tablet (20 sources) Progestin, Estrogen Start: 02-11-2024 End: 02-10-2025 take 1 tablet by mouth once daily, then take 1 tablet by mouth once daily desogestrel-ethinyl estradiol (Apri) 0.15-30 MG-MCG tablet Indications: Irregular periods/menstrual cycles , PCOS (polycystic ovarian syndrome) Take 1 tablet by mouth Daily Take 1 tablet by mouth daily 28 tablet 12 02/11/2024 02/10/2025 Active Start: 11-10-2023 End: 12-08-2023 take 1 tablet by mouth once daily, then take 1 tablet by mouth once daily desogestrel-ethinyl estradiol (Apri) 0.15-30 MG-MCG tablet Indications: Irregular periods/menstrual cycles , PCOS (polycystic ovarian syndrome) Take 1 tablet by mouth Daily for 28 days Take 1 tablet by mouth daily 28 tablet 11/10/2023 Active ergocalciferol 0.05 mg oral capsule (3 sources) Provitamin D2 Compound Start: 08-16-2024 take 1 capsule by mouth once daily ergocalciferol (Vitamin D-2) 50 MCG (1999 UT) capsule Indications: Vitamin D deficiency Take 1 capsule (50 mcg) by mouth Daily 30 capsule 5 08/16/2024 Active 24 hr metFORMIN hydrochloride 500 mg extended release oral tablet (20 sources) Biguanide Start: 02-11-2024 End: 02-10-2025 take 2 tablets by mouth every twenty-four hours in the evening metFORMIN XR (Glucophage-XR) 500 MG 24 hr tablet Indications: PCOS (polycystic ovarian syndrome) TAKE 2 TABLETS BY MOUTH IN THE EVENING WITH MEALS*DO NOT CRUSH/CHEW/SPLIT* 60 tablet 5 09/13/2024 Active Start: 11-10-2023 End: 02-12-2024 take 1 tablet by mouth every twenty-four hours at mealtime metFORMIN XR (Glucophage-XR) 500 MG 24 hr tablet Indications: Irregular periods/menstrual cycles , PCOS (polycystic ovarian syndrome) Take 1 tablet (500 mg) by mouth in the evening. Take with meals Do not crush, chew, or split. 30 tablet 11/10/2023 02/12/2024 Discontinued (Other) Multiple Vitamin (MULTIVITAMINS PO) (20 sources) take 1 tablet by mouth once daily Multiple Vitamin (MULTIVITAMINS PO) Take 1 tablet by mouth 1 (one) time each day. Active predniSONE 10 mg oral tablet (4 sources) Start: 01-21-20 End: 01-29-20 take 1 tablet by mouth three times [...] Active rimegepant 75 mg disintegrating oral tablet (20 sources) Start: 10-08-19 take 1 tablet by mouth every other day as needed Rimegepant Sulfate (Nurtec) 75 MG tablet dispersible Indications: Episodic migraine Take 1 tablet by mouth See administration instructions Every other day as needed for migraines. 8 tablet 5 10/08/2023 Active saccharomyces boulardii 250 mg oral capsule (5 sources) take 1 capsule by mouth in the morning saccharomyces boulardii (Florastor) 250 MG capsule Take 250 mg by mouth in the morning and 250 mg before bedtime. Active tiZANidine 4 mg oral tablet (19 sources) Central alpha-2 Adrenergic Agonist Start: 01-21-20 End: 02-22-20 take 1 tablet by mouth once tiZANidine (Zanaflex) 4 MG tablet Indications: Trapezius muscle spasm Take 1 tablet (4 mg) by mouth every 12 (twelve) hours if needed for muscle spasms for up to 10 days 20 tablet 02/12/2024 Active Completed/Discontinued Medications Medication Drug Class(es) Dates Sig (Normalized) Sig (Original) baclofen 10 mg oral tablet (11 sources) gamma-Aminobuty abhishek Acid-ergic Agonist Start: 07-02-2023 End: 01-21-2024 take 1 tablet by mouth twice daily as needed for muscle spasms baclofen (Lioresal) 10 MG tablet Indications: Trapezius muscle spasm TAKE 1 TABLET (10 MG) BY MOUTH 2 (TWO) TIMES A DAY NEEDED FOR MUSCLE SPASMS 180 tablet 1 07/02/2023 01/21/2024 Discontinued (Ineffective) cholecalciferol 0.125 mg oral capsule (4 sources) Vitamin D Start: 06-17-2022 End: 11-10-2023 take 1 capsule by mouth once daily cholecalciferol (Vitamin D-3) 125 MCG (5000 UT) capsule Take 1 capsule by mouth 1 (one) time each day at the same time. 06/17/2022 11/10/2023 Discontinued ethinyl estradiol 0.03 mg / norethindrone acetate 1.5 mg oral tablet (11 sources) Estrogen Start: 10-30-2023 End: 01-21-2024 take 1 tablet by mouth once daily in the morning 1.5-30 MG-MCG tablet tablet Indications: control counseling TAKE 1 TABLET BY MOUTH EVERY DAY IN THE MORNING 21 tablet 3 10/30/2023 01/21/2024 Discontinued Start: 01-22-2023 End: 01-22-2024 take 1 tablet by mouth in the morning norethindrone ac-eth estradio () 1.5-30 MG-MCG tablet tablet Indications: control counseling Take 1 tablet by mouth in the morning. 21 tablet 11 01/22/2023 01/22/2024 Active Problems Active Problems Problem Classification Problem Date Documented Date Episodic/Chronic Anxiety disorders (20 sources) Mixed anxiety and depressive disorder; Translations: [Other specified anxiety disorders] Onset: 08-05-2022 08-05-2022 Chronic Attention-deficit, conduct, and disruptive behavior disorders (20 sources) Attention deficit hyperactivity disorder; Translations: [Attention-deficit hyperactivity disorder, unspecified type] Onset: 08-05-2022 08-05-2022 Chronic Esophageal disorders (20 sources) Gastroesophageal reflux disease without esophagitis; Translations: [Gastro-esophageal reflux disease without esophagitis] Onset: 08-05-2022 08-05-2022 Chronic Headache; including migraine (20 sources) Migraine, unspecified, not intractable, without status migrainosus; Translations: [Migraine, unspecified, without mention of intractable migraine without mention of status migrainosus] Onset: 10-23-2020 09-22-2023 Chronic Immunizations and screening for infectious disease (1 source) Encounter for screening for human papillomavirus (HPV); Translations: [ENC SCREENING HUMAN PAPILLOMAVIRUS] Onset: 08-03-2021 Episodic Inflammation; infection of eye (except that caused by tuberculosis or sexually transmitteddisease) (2 sources) Allergic conjunctivitis of bilateral eyes; Translations: [Acute atopic conjunctivitis, bilateral] 08-16-2024 Episodic Malaise and fatigue (20 sources) Fatigue; Translations: [Chronic fatigue, unspecified] Onset: 08-05-2022 08-05-2022 Chronic Menstrual disorders (3 sources) Irregular periods; Translations: [Irregular menstruation, unspecified] 11-10-2023 Chronic Mood disorders (20 sources) Depressive disorder; Translations: [Depression] Onset: 08-05-2022 08-05-2022 Chronic Nutritional deficiencies (20 sources) Vitamin D deficiency; Translations: [Vitamin D deficiency, unspecified] Onset: 08-05-2022 08-05-2022 Chronic Other endocrine disorders (3 sources) Polycystic ovary syndrome; Translations: [Polycystic ovarian syndrome] 11-10-2023 Chronic Other screening for suspected conditions (not mental disorders or infectious disease) (4 sources) Encounter for screening for malignant neoplasm of cervix; Translations: [ENC SCREENING MALIG NEOPLASM CERV] Onset: 07-31-2021 Episodic Other upper respiratory disease (20 sources) Allergic rhinitis due to pollen; Translations: [Allergic rhinitis due to pollen] Onset: 08-05-2022 08-05-2022 Chronic Other upper respiratory infections (2 sources) Acute maxillary sinusitis; Translations: [Acute maxillary sinusitis, unspecified] 05-10-2024 Episodic Otitis media and related conditions (2 sources) Acute left otitis media; Translations: [Otitis media, unspecified, left ear] 05-10-2024 Episodic Unclassified (3 sources) CONTACT W/AND (SUSP) EXPOS COVID-19; Translations: [CONTACT W/AND (SUSP) EXPOS COVID-19] Onset: 10-23-2020 Past or Other Problems Problem Classification Problem Date Documented Da te Episodic/Chronic Anxiety disorders (20 sources) Feeling irritable; Translations: [Irritability and anger] Onset: 08-05-2022 08-05-2022 Episodic Coagulation and hemorrhagic disorders (20 sources) Easy bruising; Translations: [Spontaneous ecchymoses] Onset: 08-05-2022 08-05-2022 Episodic Fracture of lower limb (20 sources) Closed fracture of patella; Translations: [Unspecified fracture of unspecified patella, initial encounter for closed fracture] Onset: 05-21-2013 06-09-2023 Episodic Other circulatory disease (20 sources) Orthostatic hypotension; Translations: [Orthostatic hypotension] Onset: 08-05-2022 08-05-2022 Episodic Other connective tissue disease (20 sources) Muscle spasm of cervical muscle of neck; Translations: [Other muscle spasm] Onset: 06-09-2023 06-09-2023 Episodic Other disorders of stomach and duodenum (20 sources) Stomach problem; Translations: [Disease of stomach and duodenum, unspecified] Onset: 08-05-2022 08-05-2022 Episodic Other female genital disorders (20 sources) Disorder of female genital system; Translations: [Unspecified condition associated with female genital organs and menstrual cycle] Onset: 08-05-2022 08-05-2022 Episodic Other female genital disorders (20 sources) Vaginal lump; Translations: [Unspecified condition associated with female genital organs and menstrual cycle] Onset: 08-05-2022 08-05-2022 Episodic Other gastrointestinal disorders (20 sources) Constipation alternates with diarrhea; Translations: [Other specified symptoms and signs involving the digestive system and abdomen] Onset: 08-05-2022 08-05-2022 Episodic Other lower respiratory disease (1 source) Cough; Translations: [COUGH] Onset: 10-23-2020 Episodic Other nutritional; endocrine; and metabolic disorders (20 sources) Body mass index 25-29 - overweight; Translations: [Overweight] Onset: 08-05-2022 08-05-2022 Episodic Spondylosis; intervertebral disc disorders; other back problems (20 sources) Neck pain; Translations: [Cervicalgia] Onset: 06-09-2023 06-09-2023 Episodic Syncope (20 sources) Vasovagal syncope; Translations: [Syncope and collapse] Onset: 08-05-2022 Resolved: 09-12-2022 09-12-2022 Episodic Unclassified (1 source) CONTACT W/AND (SUSP) EXPOS COVID-19; Translations: [CONTACT W/AND (SUSP) EXPOS COVID-19] Onset: 10-17-2020 Results Test Name Value Interpretation Reference Range Facility ALL CBC WITH AUTO DIFFon BASOPHILS ABSOLUTE AUTO 0.1 [facility] Basophils/100 WBC (Bld) 0.6 % 0.2 - 2.0 % [facility] Eosinophils/100 WBC (Bld) 0.4 % Low 0.9 - 7.0 % [facility] Erythrocyte distribution width (RBC) [Ratio] 11.5 % 11.0 - 15.0 % [facility] Hematocrit (Bld) [Volume fraction] 40.7 % 36.0 - 48.0 % [facility] Hemoglobin (Bld) [Mass/Vol] 14.5 g/dL 12.0 - 16.0 g/dL [facility] IMMATURE GRANULOCYTES ABS AUTO 0.01 [facility] Immature granulocytes/100 WBC (Bld) 0.1 % 0.0 - 0.5 % [facility] Interpretation and review of laboratory results Abnormal [facility] LYMPHOCYTES ABSOLUTE AUTO 2.7 [facility] Lymphocytes/100 WBC (Bld) 33.8 % 20.5 - 60.0 % [facility] MCH (RBC) [Entitic mass] 32.4 pg 26.7 - 34.[address] [facility] MCHC (RBC) [Mass/Vol] 35.6 g/dL High 29.9 - 35.2 g/dL [facility] MCV (RBC) [Entitic vol] 90.8 fL 81.0 - 99.[address] [facility] MONOCYTES ABSOLUTE AUTO 0.5 [facility] Monocytes/100 WBC (Bld) 5.9 % 1.7 - 12.0 % [facility] NEUTROPHILS ABSOLUTE AUTO 4.8 [facility] Neutrophils/100 WBC (Bld) 59.2 % 43.0 - 75.0 % [facility] Platelet mean volume (Bld) [Entitic vol] 9.1 fL Low 9.5 - 13.[address] [facility] EO # 0.0 [facility] e TB PLT 326 [facility] e TB RBC 4.48 [facility] e [facility] WBC 8.1 [facility] e [facility] e Urinalysis macro (dipstick) panel (U)on 11-10-2023 Bilirubin, UA Negative Negative - 4(70) +++ mg/dL [facility] Blood, UA Negative Negative - 50 Deny/mcL [facility] Clarity, UA [facility] re Color, UA Yellow [facility] e Glucose, UA Negative Negative - 2000(110) ++++ mg/dL [facility] Interpretation and review of laboratory results Normal [facility] Ketones, UA Negative Negative - 160(16) ++++ mg/dL [facility] Leukocytes, UA Negative Negative - 500+++ Jaelyn/mcL [facility] Nitrite, UA Negative Negative - Positive [facility] pH, UA 6.5 5 - 9 [facility] Protein, UA Negative Negative - 2000(20) ++++ mg/dL [facility] Spec Grav, UA 1.020 1 - 1.[address] [facility] care Urobilinogen, UA 0.2 0.2 - 12 mg/dL [facility] IGP,APTIMA HPV,AGE GDLNon AGE GDLN ACOG TESTING Note . [facility] Comment on above: TESTS RESULT FLAG U NITS REF RANGE LAB Clinician Provided Cytology Information Source.............Cervix;Endocervix No. of containers..01 ThinPrep Vial Age Algo ACOG Анна... - 01 FLAG LEGEND: L-Low Normal,H-High Normal,LL-Alert Low,HH-Alert High <-Panic Low,>-Panic High,A-Abnormal,AA-Critical Abnormal Performed at: 01 =G [address]orget[address] [address] Natali Lynn MD, HPV APTIMA Negative Negative [facility] Comment on above: This nucleic acid am plification test detects fourteen high- risk HPV types (16,18,31,33,35,39,45,51,52,56,58,59,66,68) without differentiation. Performed at: = - [facility] [id number] Masonry Inspector: Natali Lynn MD, Phone: [phone] Performed at: - [facility] [id number] Masonry Inspector: Natali Lynn MD, Phone: [phone] IGP, RFX APTIMA HPV ASCU Note Abnormal . [facility] Comment on above: TESTS RESULT FLAG UN ITS REF RANGE LAB DIAGNOSIS: [A] 02 EPITHELIAL CELL ABNORMALITY. ATYPICAL SQUAMOUS CELLS OF UNDETERMINED SIGNIFICANCE (ASC-US). Recommendation: [A] 02 Suggest follow up as clinically appropriate. Specimen adequacy: 02 Satisfactory for evaluation. No endocervical component is identified. Performed by: 02 Chidi Lam, Athletic Trainer (ASCP) Electronically si... 02 Natali Lynn MD, Pathologist . 02 Pathologist ICD10: 02 R87.610 Note: Note 02 The Pap smear is a screening test designed to aid in the detection of premalignant and malignant conditions of the uterine cervix. It is not a diagnostic procedure and should not be used as the sole means of detecting cervical cancer. Both false-positive and false-negative reports do occur. Test Methodology: Note 02 This liquid based ThinPrep(R) pap test was screened with the use of an image guided system. . 02 See below for HPV testing results. FLAG LEGEND: L-Low Normal,H-High Normal,LL-Alert Low,HH-Alert High <-Panic Low,>-Panic High,A-Abnormal,AA-Critical Abnormal Performed at: 02 [facility] [address] [place] [address] Natali Lynn MD, Interpretation and review of laboratory results Abnormal [facility] BRUSH-SPATULA CERVIX ENDOCERVIX [facility] e PAP ACOG PANEL 2: 21 to 27on 08-03-2021 . . [facility] Comment on above: Performed By: #### [id number] #### [facility] [address] [place] [address] Dr. John Dominguez Age Gdln ACOG Testing - [facility] Comment on above: Performed By: #### [id number] #### [facility] [address] [address] [address] John Dominguez DIAGNOSIS: Comment [facility] Comment on above: Result Comment: NEGA TIVE FOR INTRAEPITHELIAL LESION OR MALIGNANCY. Performed By: #### [id number] #### [facility] [address] [address] [address] John Dominguez Methodology: Comment [facility] Comment on above: Result Comment: This liquid based ThinPrep(R) pap test was screened with the use of an image guided system. Performed By: #### [id number] #### [facility] [address] [address] [address] John Dominguez Note: Comment [facility] Comment on above: Result Comment: The Pap smear is a screening test designed to aid in the detection of premalignant and malignant conditions of the uterine cervix. It is not a diagnostic procedure and should not be used as the sole means of detecting cervical cancer. Both false-positive and false-negative reports do occur. . Performed By: #### [id number] #### [facility] [address] [place] [address] Dr. John Dominguez Performed by: Comment [facility] Comment on above: Result Comment: Ute ica Noyola, Athletic Trainer (ASCP) Performed By: #### [id number] #### [facility] [address] [place] [address] Dr. John Dominguez Reflex Criteria: Comment Normal [facility] Comment on above: Result Comment: The HPV DNA reflex criteria were not met with this specimen result therefore, no HPV testing was performed. . Performed By: #### [id number] #### [facility] [address] [place] [address] Dr. John Dominguez Specimen adequacy: Comment Normal [facility] Comment on above: Result Comment: Sati sfactory for evaluation. Endocervical and/or squamous metaplastic cells (endocervical component) are present. Performed By: #### [id number] #### [facility] [address] [place] [address] Dr. John Dominguez Covid-19 PCR [facility]on 09-25 SARS-CoV-2 (COVID-19) RNA TASHA+probe Ql (Unsp spec) Not detected Normal NOT DETECTED [facility] Comment on above: Result Comment: This test is not yet approved or cleared by the [place] FDA. When there are no FDA-approved or cleared tests available, and other criteria are met, FDA can make tests available under an emergency access mechanism called an Emergency Use Authorization (EUA). The EUA for this test is supported by the Pathology Laboratory Aide of Health and Human Service's (HHS's) declaration [...] consistent with SARS-CoV-2. Performed By: #### C VDTBH #### [facility] [address] [place] [address] Ita Raven Vital Signs Date Time Vital Sign Value Performing Clinician Cisco silva 08-16-2024 15:32-0400 Body height 170.2 cm Raven Hemmer PA Work Phone: [facility] 08-16-2024 15:32-0400 Body mass index (BMI) [Ratio] 27.88 kg/m2 Raven Hemmer PA Work Phone: [facility] 08-16-2024 15:32-0400 Body weight 80.74 kg Raven Hemmer PA Work Phone: [facility] 08-16-2024 15:32-0400 Diastolic blood pressure 68 mm[Hg] Raven Hemmer PA Work Phone: [facility] 08-16-2024 15:32-0400 Heart rate 92 /min Raven Hemmer PA Work Phone: [facility] 08-16-2024 15:32-0400 SaO2% (BldA) [Mass fraction] 98 % Raven Hemmer PA Work Phone: [facility] 08-16-2024 15:32-0400 Systolic blood pressure 100 mm[Hg] Raven Hemmer PA Work Phone: [facility] 05-10-2024 09:39-0400 Body height 170.2 cm Raven Hemmer PA Work Phone: [facility] 05-10-2024 09:39-0400 Body mass index (BMI) [Ratio] 28.79 kg/m2 Raven Hemmer PA Work Phone: [facility] 05-10-2024 09:39-0400 Body temperature 98.8 [degF] Raven Hemmer PA Work Phone: [facility] 05-10-2024 09:39-0400 Body weight 83.37 kg Raven Hemmer PA Work Phone: [facility] 05-10-2024 09:39-0400 Diastolic blood pressure 72 mm[Hg] Raven Hemmer PA Work Phone: [facility] 05-10-2024 09:39-0400 Heart rate 90 /min Raven Hemmer PA Work Phone: [facility] 05-10-2024 09:39-0400 Respiratory rate 16 /min Raven Hemmer PA Work Phone: [facility] 05-10-2024 09:39-0400 SaO2% (BldA) [Mass fraction] 98 % Raven Hemmer PA Work Phone: [facility] 05-10-2024 09:39-0400 Systolic blood pressure 104 mm[Hg] Raven Hemmer PA Work Phone: [facility] 02-12-2024 15:34-0500 Body height 170.2 cm Raven Hemmer PA Work Phone: [facility] 02-12-2024 15:34-0500 Body mass index (BMI) [Ratio] 27.57 kg/m2 Raven Hemmer PA Work Phone: [facility] 02-12-2024 15:34-0500 Body weight 79.83 kg Raven Hemmer PA Work Phone: [facility] 02-12-2024 15:34-0500 Diastolic blood pressure 68 mm[Hg] Raven Hemmer PA Work Phone: [facility] 02-12-2024 15:34-0500 Heart rate 95 /min Raven Hemmer PA Work Phone: [facility] 02-12-2024 15:34-0500 SaO2% (BldA) [Mass fraction] 98 % Raven Hemmer PA Work Phone: [facility] 02-12-2024 15:34-0500 Systolic blood pressure 110 mm[Hg] Raven Hemmer PA Work Phone: [facility] 01-21-2024 15:31-0500 Body mass index (BMI) [Ratio] 28.29 kg/m2 Raven Hemmer PA Work Phone: [facility] 01-21-2024 15:31-0500 Body weight 81.92 kg Raven Hemmer PA Work Phone: [facility] 01-21-2024 15:31-0500 Diastolic blood pressure 75 mm[Hg] Raven Hemmer PA Work Phone: [facility] 01-21-2024 15:31-0500 Heart rate 97 /min Raven Hemmer PA Work Phone: [facility] 01-21-2024 15:31-0500 Respiratory rate 16 /min Raven Hemmer PA Work Phone: [facility] 01-21-2024 15:31-0500 SaO2% (BldA) [Mass fraction] 99 % Raven Hemmer PA Work Phone: [facility] 01-21-2024 15:31-0500 Systolic blood pressure 115 mm[Hg] Raven Hemmer PA Work Phone: [facility] 12-25-2023 16:30-0400 Body height 170.2 cm Vivien Bradshaw [employer] Work Phone: [facility] 12-25-2023 16:30-0400 Body mass index (BMI) [Ratio] 28.04 kg/m2 Vivien Bradshaw [employer] Work Phone: [facility] 12-25-2023 16:30-0400 Body weight 81.19 kg Vivien Bradshaw [employer] Work Phone: [facility] 12-25-2023 16:30-0400 Diastolic blood pressure 66 mm[Hg] Vivien Bradshaw [employer] Work Phone: [facility] 12-25-2023 16:30-0400 Heart rate 78 /min Vivien Bradshaw [employer] Work Phone: [facility] 12-25-2023 16:30-0400 SaO2% (BldA) [Mass fraction] 98 % Vivien Bradshaw [employer] Work Phone: [facility] 12-25-2023 16:30-0400 Systolic blood pressure 124 mm[Hg] Vivien Bradshaw [employer] Work Phone: [facility] 11-10-2023 13:59-0400 Body mass index (BMI) [Ratio] 28.88 kg/m2 Enid Kristofer DO Work Phone: [facility] 11-10-2023 13:59-0400 Body weight 83.64 kg Enid Kristofer DO Work Phone: [facility] 11-10-2023 13:59-0400 Diastolic blood pressure 60 mm[Hg] Enid Kristofer DO Work Phone: [facility] 11-10-2023 13:59-0400 Systolic blood pressure 110 mm[Hg] Enid Kristofer DO Work Phone: [facility] Healthcare Encounters Encounter Date Encounter Type Care Provider Facility Start: 10-11-2024 End: 10-11-2024 Bamboo flowsheet Enid Kristofer DO Work Phone: [facility] Start: 10-11-2024 End: 10-11-2024 Bamboo flowsheet Enid Kristofer DO Work Phone: [facility] Start: 08-16-2024 End: 08-16-2024 Office outpatient visit 15 minutes Raven THOMPSON Work Phone: [facility] Comment on above: Allergic conjunctivi tis of both eyes (Primary Dx); Attention deficit hyperactivity disorder (ADHD), unspecified ADHD type ; Vitamin D deficiency; Chronic fatigue Start: 08-16-2024 End: 08-16-2024 ambulatory RAVEN ENRIQUE Not Available Start: 05-10-2024 End: 05-10-2024 ambulatory RAVEN ENRIQUE Not Available Start: 05-10-2024 End: 05-10-2024 Office outpatient visit 25 minutes Raven THOMPSON Work Phone: [facility] Comment on above: Acute left otitis me orestes (Primary Dx); Attention deficit hyperactivity disorder (ADHD), unspecified ADHD type (CMS/HCC); Acute non-recurrent maxillary sinusitis Start: 04-07-2024 End: 04-08-2024 Refill Nichelle Zhang MA [facility] Comment on above: Attention deficit hy peractivity disorder (ADHD), unspecified ADHD type (CMS/HCC) Start: 02-12-2024 End: 02-12-2024 Office outpatient visit 15 minutes Raven Enrique PA Work Phone: [facility] Comment on above: Neck pain (Primary D x); Attention deficit hyperactivity disorder (ADHD), unspecified ADHD type (CMS/HCC); Trapezius muscle spasm Start: 02-12-2024 End: 02-12-2024 ambulatory RAVEN ENRIQUE Not Available Start: 02-09-2024 End: 02-09-2024 Telephone encounter Raven Enrique PA Work Phone: [facility] Start: 02-09-2024 End: 02-09-2024 Office outpatient visit 5 minutes Enid Miner DO Work Phone: [facility] Comment on above: Irregular periods/me nstrual cycles (Primary Dx); PCOS (polycystic ovarian syndrome) Start: 02-05-2024 End: 02-06-2024 Telephone encounter Daniel Hayesink HOSIERY LOOPER [facility] Comment on above: Cx PT out Start: 01-30-2024 End: 01-30-2024 ambulatory Daniel Brink HOSIERY LOOPER [facility] Comment on above: Neck pain (Primary D x); Trapezius muscle spasm Start: 01-30-2024 End: 01-30-2024 Bamboo flowsheet Daniel Brink HOSIERY LOOPER [facility] Start: 01-30-2024 End: 01-30-2024 Bamboo flowsheet Daniel Brink HOSIERY LOOPER [facility] Start: 01-28-2024 End: 01-28-2024 Telephone encounter Trisha Tadeo PT Work Phone: [facility] Comment on above: PT for neck / back Start: 01-28-2024 End: 01-28-2024 ambulatory Trisha Tadeo PT Work Phone: [facility] Comment on above: Neck pain (Primary D x); Trapezius muscle spasm Start: 01-21-2024 End: 01-21-2024 Office outpatient visit 15 minutes Raven Enrique PA Work Phone: [facility] Comment on above: Neck pain (Primary D x); Trapezius muscle spasm Start: 01-21-2024 End: 01-21-2024 ambulatory RAVEN Roxanne ENRIQUE Not Available Start: 01-21-2024 End: 01-21-2024 Bamboo flowsheet Raven M Maximilian PA Work Phone: [facility] Start: 01-21-2024 End: 01-21-2024 Bamboo flowsheet Raven M Maximilian PA Work Phone: [facility] Start: 12-25-2023 End: 12-25-2023 ambulatory VIVIEN BRADSHAW Not Available Start: 12-25-2023 End: 12-25-2023 Office outpatient visit 25 minutes Vivien Bradshaw [employer] Work Phone: [facility] Comment on above: Attention deficit hy peractivity disorder (ADHD), unspecified ADHD type (CMS/HCC); Major depressive disorder, recurrent, mild (HCC) (CMS/HCC) Start: 12-25-2023 End: 12-25-2023 Bamboo flowsheet Vivien Bradshaw [employer] Work Phone: [facility] Start: 12-25-2023 End: 12-25-2023 Bamboo flowsheet Vivien Bradshaw [employer] Work Phone: [facility] Start: 11-10-2023 End: 11-10-2023 Bamboo flowsheet Enid Kristofer DO Work Phone: [facility] Start: 11-10-2023 End: 11-10-2023 Bamboo flowsheet Enid Kristofer DO Work Phone: [facility] Start: 11-10-2023 End: 11-10-2023 Clinisync Result Encounter Enid Kristofer DO Work Phone: [facility] Unsolicited Start: 11-10-2023 End: 11-10-2023 ambulatory ENID KRISTOFER Not Available Start: 11-10-2023 End: 11-10-2023 Office outpatient visit 15 minutes Enid Kristofer DO Work Phone: [facility] Comment on above: Irregular periods/me nstrual cycles; PCOS (polycystic ovarian syndrome) Start: 10-06-2023 End: 10-06-2023 ambulatory HANNAH ALMENDAREZ Not Available Start: 10-06-2023 End: 10-15-2023 Clinisync Result Encounter Hannah THOMPSON Work Phone: [facility] Start: 10-06-2023 End: 10-15-2023 Clinisync Result Encounter Hannah THOMPSON Work Phone: [facility] Start: 07-31-2021 End: 07-31-[address] JAVED FINE Facility:[facility] Start: 10-17-2020 End: 10-18-[address] RAVEN ENRIQUE Facility:[facility] Procedures Date Procedure Procedure Detail Performing Clinician Start: 11-10-2023 Urnls dip stick/tabl et rgnt non-auto w/o micrscp Enid Kristofer DO Work Phone: Start: 11-10-2023 ALL CBC WITH AUTO DIFF Enid Kristofer DO Work Phone: Start: 10-06-2023 IGP,APTIMA HPV,AGE GDLN Hannah THOMPSON Work Phone: Plan of Treatment Date Care Activity Detail Author Start: 11-16-2024 End: 11-16-2024 Patient encounter procedure 11/16/2024 3:30 PM EDT Office Visit [facility] [address] [place] [address] Raven Enrique PA [address] [place] [address] [facility] Start: 10-25-2024 Influenza vaccination [facility] Start: 10-11-2024 End: 10-11-2024 Patient encounter procedure [facility] Comment on above: Arrived Start: 08-16-2024 End: 08-16-2024 Patient encounter procedure 08/16/2024 3:30 PM EDT Office Visit [facility] [address] [place] [address] Raven Enrique PA [address] [place] [address] [facility] Start: 05-13-2024 End: 05-13-2024 Patient encounter procedure 05/13/2024 3:30 PM EDT Office Visit [facility] [address] [place] [address] Raven Enrique, PA [address] [place] [address] [facility] Start: 02-12-2024 End: 02-12-2024 ambulatory 02/12/2024 4:30 PM EST Treatment [facility] [address] [place] [address] Trisha Tadeo, PT [address] [place] [address] [facility] Start: 02-12-2024 End: 02-12-2024 Patient encounter procedure 02/12/2024 3:30 PM EST Office Visit [facility] [address] [place] [address] Raven Enrique, PA [address] [place] [address] [facility] Start: 02-10-2024 End: 02-10-2024 ambulatory 02/10/2024 3:00 PM EST Treatment [facility] [address] [facility] [address] [place] [address] Doyrs Dalton, CHARI [facility] Start: 02-09-2024 End: 02-09-2024 Patient encounter procedure 02/09/2024 8:10 AM EST Office Visit [facility] [address] [place] [id number] Enid Miner, [address] [place] [address] [facility] Start: 02-06-2024 End: 02-06-2024 ambulatory 02/06/2024 3:00 PM EST Treatment [facility] [address] [place] [address] Angela Daniel, HOSIERY LOOPER [facility] Start: 02-04-2024 End: 02-04-2024 ambulatory 02/04/2024 3:30 PM EST Treatment [facility] [address] [place] [address] Dorys Dalton, HOSIERY LOOPER [facility] Start: 02-03-2024 End: 02-03-2024 ambulatory 02/03/2024 3:00 PM EST Treatment [facility] [address] [place] [address] Trisha Tadeo, PT [address] [place] [address] [facility] Start: 01-30-2024 End: 01-30-2024 ambulatory [facility] Comment on above: Arrived Start: 01-28-2024 End: 01-28-2024 ambulatory 01/28/2024 1:00 PM EST Evaluation [facility] [address] [place] [address] Trisha Tadeo, PT [address] [place] [address] [facility] Start: 01-21-2024 End: 01-21-2024 Patient encounter procedure 01/21/2024 3:30 PM EST Office Visit [facility] [address] [place] [address] Raven Enrique, PA [address] [place] [address] Arrived [facility] Comment on above: Arrived Start: 01-21-2024 End: 01-20-2025 XR Cervical spine 4 or 5 Views XR CERVICAL SPINE AP/LAT/OBLIQUES Imaging Routine Neck pain Expected: 01/21/2024, Expires: 01/20/2025 [facility] Work Phone: Comment on above: Expected: 01/21/2024 , Expires: 01/20/2025 Start: 11-10-2023 End: 11-09-2024 DHEA DHEA Lab Routine Irregular periods/menstrual cycles PCOS (polycystic ovarian syndrome) Expected: 11/10/2023 (Approximate), Expires: 11/09/2024 [facility] Comment on above: Expected: 11/10/2023 (Approximate), Expires: 11/09/2024 Start: 10-26-2023 Influenza vaccination Influenza Vacc ine (#1) [facility] CBC W Auto Different ial panel - Blood CBC and differential Lab Routine Irregular periods/menstrual cycles PCOS (polycystic ovarian syndrome) Ordered: 11/10/2023 [facility] Comment on above: Ordered: 11/10/2023 DHEA-sulfate DHEA-sulfate Lab Routine Irregular periods/menstrual cycles PCOS (polycystic ovarian syndrome) Ordered: 11/10/2023 [facility] Comment on above: Ordered: 11/10/2023 Follicle stimulating hormone Follicle stimulating hormone Lab Routine Irregular periods/menstrual cycles PCOS (polycystic ovarian syndrome) Ordered: 11/10/2023 [facility] Comment on above: Ordered: 11/10/2023 hCG, quantitative, hCG, quantitative, Lab Routine Irregular periods/menstrual cycles PCOS (polycystic ovarian syndrome) Ordered: 11/10/2023 [facility] Work Phone: Comment on above: Ordered: 11/10/2023 Hemoglobin A1c/Hemoglobin.total in Blood Hemoglobin A1c Lab Routine Irregular periods/menstrual cycles PCOS (polycystic ovarian syndrome) Ordered: 11/10/2023 [facility] Comment on above: Ordered: 11/10/2023 Luteinizing hormone Luteinizing hormone Lab Routine Irregular periods/menstrual cycles PCOS (polycystic ovarian syndrome) Ordered: 11/10/2023 [facility] Comment on above: Ordered: 11/10/2023 Thyrotropin [Units/volume] in Serum or Plasma TSH Lab Routine Irregular periods/menstrual cycles PCOS (polycystic ovarian syndrome) Ordered: 11/10/2023 [facility] Comment on above: Ordered: 11/10/2023 Thyroxine (T4) free [Mass/volume] in Serum or Plasma T4, free Lab Routine Irregular periods/menstrual cycles PCOS (polycystic ovarian syndrome) Ordered: 11/10/2023 [facility] Comment on above: Ordered: 11/10/2023 Immunizations Immunization Date Immunization Notes Care Provider Wilmer acuna 12-10-2017 Influenza, injectabl e, Madin [place] Canine Kidney, quadrivalent with preservative Hannah THOMPSON Work Phone: [facility] 12-10-2017 influenza virus vacc ine, unspecified formulation Hannah THOMPSON Work Phone: [facility] Payers Date Payer Category Payer Private Health Insurance [facility] [id number] 2023 Unknown [employer] [id number] 2023-Present [phone] [place] [id number] 2023 Unknown [id number] 1998 Unknown [id number] .2.593 1998 Unknown [id number] [id number] .2.593 1998 Unknown [id number] [id number] .2.1259 1998 Unknown [id number] [id number] .2.1259 1998 Unknown [id number] [id number] .2.9 1998 Unknown [id number] [id number] .2.9 1998 Unknown [id number] [id number] .2.1258 1998 Unknown [id number] [id number] .2.1258 1998 Unknown [id number] [id number] .2.1258 1998 Unknown [id number] [id number] .2.9 1998 Unknown [id number] [id number] .2.9 1959 Unknown [id number] 1959 Unknown [id number] Social History Date Type Detail Facility Start: 08-03-2022 Tobacco smoking stat [facility] Never smoked tobacco [facility] Start: 08-03-2022 Tobacco use and exposure Smoke less tobacco non-user [facility] Start: 11-10-2023 End: 08-16-2024 Alcoholic beverage intake Lifetime non-drinker (finding) [facility] Start: 09-10-2022 End: 08-16-2024 History of Social function [facility] Start: 09-10-2022 End: 08-16-2024 Humiliation, Afraid, Rape, and Kick questionnaire [HARK] [...] time - these days [OSQ] Rather much [facility] (I/We) worried wheshana er (my/our) food would run out before (I/we) got money to buy more. Sometimes true [facility] The food that (I/we) bought just didn't last, and (I/we) didn't have money to get more. Never true [facility] Start: 08-03-2022 Alcohol Comment Caffeine: 1-2 cups/day coffee [facility] Start: 2000 Sex assigned at Female [facility] Start: 07-03-2022 Gender identity Identifies as female gender (finding) [facility] Start: 07-03-2022 Sexual orientation Heterosexual (fin ding) [facility] Functional Status Date Assessment Result Facility 08-16-2024 Patient Health Quest ionnaire 2 item (PHQ-2) [Reported] [facility] Clinical Notes 11-10-2023 to 08-16-2024 DONNA Garcia - 08/16/2024 3:30 PM DONNA Gama - 05/10/2024 9:30 AM EDTTelephone Encounter - Samantha Rae - 04/08/2024 1:45 PM DONNA Barrera - 02/12/2024 3:30 PM EST Note Date & Type Note Facility 08-16-2024 History of Presen t illness Narrative Images from the original note were not included. Subjective Patient ID: Judy Montana is a 24 y.o. female who presents for ADHD. Pt has no concerns, pt states she is very fatigued can't get out of bed Just started with her eyes being fuzzy or possible blurry vision 3 days ago. Feels like she has to blink more. She had tried different solution as she has contacts, also switched out her contacts and the same thing happened. States it is better when she wears her glasses. Seems to have more problems at night. States her eyes do feel dry. Feels like she has to rub her eyes more a little itchy at times. Did have her eyes checked about 7 months ago. Having to look at a screen more often. Tried Blink eye drops without relief. States the Vitamin D3 supplement gave her cystic acne, so has not been able to take it. ADHD This is a chronic problem. The current episode started more than 1 month ago. Progression since onset: overall improvement. Associated symptoms include fatigue. Pertinent negatives include no abdominal pain, chest pain, chills, coughing, fever, nausea, rash or vomiting. Associated symptoms comments: none. Exacerbated by: missing medication. Improvement on treatment: significant relief from use of medication. Over the past 2 weeks, how often have you been bothered by any of the following problems? Little interest or pleasure in doing things: Not at all Feeling down, depressed, or hopeless: Not at all Patient Health Questionnaire-2 Score: 0 Current Outpatient Medications on File Prior to Visit Medication Sig Dispense Refill Adapalene-Benzoyl Peroxide 0.1-2.5 % gel Apply pea-size amount to T-zone, chin and problem areas nightly. 45 g 0 buPROPion XL (Wellbutrin XL) 300 MG 24 hr tablet TAKE 1 TABLET (300 MG) BY MOUTH IN THE MORNING 90 tablet 1 desogestrel-ethinyl estradiol (Apri) 0.15-30 MG-MCG tablet Take 1 tablet by mouth Daily Take 1 tablet by mouth daily 28 tablet 12 metFORMIN XR (Glucophage-XR) 500 MG 24 hr tablet Take 2 tablets (1,000 mg) by mouth in the evening. Take with meals Do not crush, chew, or split. 30 tablet 11 Multiple Vitamin (MULTIVITAMINS PO) Take 1 tablet by mouth 1 (one) time each day. Rimegepant Sulfate (Nurtec) 75 MG tablet dispersible Take 1 tablet by mouth See administration instructions Every other day as needed for migraines. 8 tablet 5 saccharomyces boulardii (Florastor) 250 MG capsule Take 250 mg by mouth in the morning and 250 mg before bedtime. tiZANidine (Zanaflex) 4 MG tablet Take 1 tablet (4 mg) by mouth every 12 (twelve) hours if needed for muscle spasms for up to 10 days 20 tablet 0 [DISCONTINUED] amphetamine-dextroamphetamine (Adderall) 30 MG tablet Take 1 tablet (30 mg) by mouth 1 (one) time each day at the same time 30 tablet 0 No current facility-administered medications on file prior [...] Diagnosis Date ADHD (attention deficit hyperactivity disorder) Anxiety Back abscess 2016 Depression Migraines Neurocardiogenic syncope Obesity (BMI 30-39.9) Stomach problems Vitamin D deficiency Past Surgical History: Procedure Laterality Date GALLBLADDER SURGERY 2016 Visit Vitals BP 100/68 Pulse 92 Ht 5' 7 Wt 178 lb SpO2 98% BMI 27.88 kg/m OB Status Having periods Smoking Status Never BSA 1.95 m Review of Systems Constitutional: Positive for fatigue. Negative for chills and fever. Eyes: Positive for visual disturbance. Respiratory: Negative for cough, shortness of breath and wheezing. Cardiovascular: Negative for chest pain, palpitations and leg swelling. Gastrointestinal: Negative for abdominal pain, constipation, diarrhea, nausea and vomiting. Skin: Negative for rash. Objective Physical Exam Constitutional: General: She is not in acute distress. Appearance: Normal appearance. She is well-developed. HENT: Head: Normocephalic and atraumatic. Eyes: General: No scleral icterus. Conjunctiva/sclera: Right eye: Right conjunctiva is injected (Minimal). Left eye: Left conjunctiva is injected (Minimal). Cardiovascular: Rate and Rhythm: Normal rate and regular rhythm. Heart sounds: Normal heart sounds. No murmur heard. Pulmonary: Effort: Pulmonary effort is normal. No respiratory distress. Breath sounds: Normal breath sounds. No wheezing, rhonchi or rales. Skin: General: Skin is warm and dry. Neurological: General: No focal deficit present. Mental Status: She is alert and oriented to person, place, and time. Psychiatric: Mood and Affect: Mood normal. Behavior: Behavior normal. Assessment/Plan Diagnoses and all orders for this visit: Allergic conjunctivitis of both eyes Start Ketotifen drops OTC for the next 1-2 weeks. Refresh Plus drops if no improvement with Ketotifen. Attention deficit hyperactivity disorder (ADHD), unspecified ADHD type - amphetamine-dextroamphetamine (Adderall) 30 MG tablet; Take 1 tablet (30 mg) by mouth 1 (one) time each day at the same time Medication choice and dosage is appropriate for patient's current medical conditions. Patient will continue to be required to be seen in our office at least every three months for monitoring. At each follow up visit I will reassess the patient's need for the medication. Patient is to have this medication prescribed only through this office. Failure to follow the rules and regulations will result in tapering and discontinuation of medications if applicable. Patient verbalized understanding. OARRS Report was reviewed for this patient. Vitamin D deficiency - ergocalciferol (Vitamin D-2) 50 MCG (2000 UT) capsule; Take 1 capsule (50 mcg) by mouth Daily Will have her try a different type of Vitamin D to see if this is better tolerated. Chronic fatigue May be due to Vitamin D deficiency. Will see if it improves with supplementation. Follow up in about 3 months (around 11/16/2024) for Medication Follow Up. documented in this encounter [facility] 05-10-2024 History of Presen t illness Narrative Images from the original note were not included. Subjective Patient ID: Judy Montana is a 24 y.o. female who presents for congestion. Judy is present today for evaluation of URI. Admits sinus pressure, nasal congestion, left ear pain, post nasal drainage, runny nose mostly clear with a little yellow, cough dry, fatigue. She thinks she had COVID last week, did not test but her dad tested positive and she was around him and then she got sick. She has been sick with these symptoms since . She has been taking tylenol and sinus and cold medicine. Flew back home on Friday and her left ear did not want to pop at all. Current Outpatient Medications on File Prior to Visit Medication Sig Dispense Refill buPROPion XL (Wellbutrin XL) 150 MG 24 hr tablet TAKE 1 TABLET (150 MG) BY MOUTH IN THE MORNING 100 tablet 3 Adapalene-Benzoyl Peroxide 0.1-2.5 % gel Apply pea-size amount to T-zone, chin and problem areas nightly. 45 g 0 amphetamine-dextroamphetamine (Adderall) 30 MG tablet Take 1 tablet (30 mg) by mouth 1 (one) time each day at the same time 30 tablet 0 desogestrel-ethinyl estradiol (Apri) 0.15-30 MG-MCG tablet Take 1 tablet by mouth Daily Take 1 tablet by mouth daily 28 tablet 12 metFORMIN XR (Glucophage-XR) 500 MG 24 hr tablet Take 2 tablets (1,000 mg) by mouth in the evening. Take with meals Do not crush, chew, or split. 30 tablet 11 Multiple Vitamin (MULTIVITAMINS PO) Take 1 tablet by mouth 1 (one) time each day. Rimegepant Sulfate (Nurtec) 75 MG tablet dispersible Take 1 tablet by mouth See administration instructions Every other day as needed for migraines. 8 tablet 5 saccharomyces boulardii (Florastor) 250 MG capsule Take 250 mg by mouth in the morning and 250 mg before bedtime. tiZANidine (Zanaflex) 4 MG tablet Take 1 tablet (4 mg) by mouth every 12 (twelve) hours if needed for muscle spasms for up to 10 days 20 tablet 0 [DISCONTINUED] buPROPion XL (Wellbutrin XL) 150 MG 24 hr tablet TAKE 1 TABLET (150 MG) BY MOUTH IN THE MORNING 90 tablet 5 No current facility-administered medications on file prior [...] Diagnosis Date ADHD (attention deficit hyperactivity disorder) (CMS/HCC) Anxiety Back abscess 2016 Depression (CMS/HCC) Migraines (CMS/HCC) Neurocardiogenic syncope Obesity (BMI 30-39.9) Stomach problems Vitamin D deficiency Past Surgical History: Procedure Laterality Date GALLBLADDER SURGERY 2016 Visit Vitals BP 104/72 Pulse 90 Temp 98.8 F Resp 16 Ht 5' 7 Wt 183 lb 12.8 oz SpO2 98% BMI 28.79 kg/m OB Status Having periods Smoking Status Never BSA 1.99 m Review of Systems Constitutional: Positive for fatigue. Negative for chills and fever. HENT: Positive for congestion, ear pain, postnasal drip, sinus pressure and sneezing. Respiratory: Positive for cough. Negative for shortness of breath and wheezing. Cardiovascular: Negative for chest pain, palpitations and leg swelling. Gastrointestinal: Negative for abdominal pain, constipation, diarrhea, nausea and vomiting. Skin: Negative for rash. Objective Physical Exam Constitutional: General: She is not in acute distress. Appearance: She is well-developed. She is ill-appearing (Mildly). HENT: Head: Normocephalic and atraumatic. Right Ear: Ear canal normal. Tympanic membrane is bulging (Mild). Left Ear: Ear canal normal. Tympanic membrane is erythematous and bulging. Nose: Right Sinus: Maxillary sinus tenderness present. No frontal sinus tenderness. Left Sinus: Maxillary sinus tenderness present. No frontal sinus tenderness. Mouth/Throat: Mouth: Mucous membranes are moist. Pharynx: No posterior oropharyngeal erythema. Eyes: General: No scleral icterus. Conjunctiva/sclera: Conjunctivae normal. Cardiovascular: Rate and Rhythm: Normal rate and regular rhythm. Heart sounds: Normal heart sounds. No murmur heard. Pulmonary: Effort: Pulmonary effort is normal. No respiratory distress. Breath sounds: Normal breath sounds. No wheezing, rhonchi or rales. Lymphadenopathy: Cervical: No cervical adenopathy. Skin: General: Skin is warm and dry. Neurological: General: No focal deficit present. Mental Status: She is alert and oriented to person, place, and time. Psychiatric: Mood and Affect: Mood normal. Behavior: Behavior normal. Assessment/Plan Diagnoses and all orders for this visit: Acute left otitis media - amoxicillin (Amoxil) 875 MG tablet; Take 1 tablet (875 mg) by mouth in the morning and 1 tablet (875 mg) before bedtime. Do all this for 10 days. Start the above as directed. Reviewed potential s/e with patient. Encouraged probiotic while on antibiotic. Increase water intake, get plenty of rest. Follow up if no improvement in one week. Attention deficit hyperactivity disorder (ADHD), unspecified ADHD type (CMS/HCC) - amphetamine-dextroamphetamine (Adderall) 30 MG tablet; Take 1 tablet (30 mg) by mouth 1 (one) time each day at the same time Medication choice and dosage is appropriate for patient's current medical conditions. Patient will continue to be required to be seen in our office at least every three months for monitoring. At each follow up visit I will reassess the patient's need for the medication. Patient is to have this medication prescribed only through this office. Failure to follow the rules and regulations will result in tapering and discontinuation of medications if applicable. Patient verbalized understanding. OARRS Report was reviewed for this patient. Acute non-recurrent maxillary sinusitis She can continue Tylenol Cold and Sinus as needed for symptom relief. Follow up in about 3 months (around 08/10/2024) for Medication Follow Up. documented in this encounter [facility] 04-08-2024 Telephone encount er Note Appt scheduled [facility] 04-08-2024 Miscellaneous Notes Formattin g of this note might be different from the original. Appt scheduled Please help pt get set up for medication follow up appointment in mid to late April. Thank you. documented in this encounter [facility] 04-07-2024 Telephone encount er Note Please help pt get set up for medication follow up appointment in mid to late April. Thank you. [facility] 02-12-2024 History of Presen t illness Narrative Images from the original note were not included. Subjective Patient ID: Judy Montana is a 23 y.o. female who presents for Neck Pain. Judy is in today for follow up on the pain from mid neck up to the base of her skull. States it is better not as bad as it was , today her pain is around a 3 to 5 depending on the day. States did have one episode after doing her hair that her neck locked up on her and she couldn't move her neck. Was able to get into PT that day and Trisha was able to decrease the discomfort significantly and get her neck moving better. Since then the pain has been much improved. Worst was one episode of 7/10 pain. Also here for ADHD follow up. Medication working well, no concerns. Current Outpatient Medications on File Prior to Visit Medication Sig Dispense Refill Adapalene-Benzoyl Peroxide 0.1-2.5 % gel Apply pea-size amount to T-zone, chin and problem areas nightly. 45 g 0 buPROPion XL (Wellbutrin XL) 150 MG 24 hr tablet TAKE 1 TABLET (150 MG) BY MOUTH IN THE MORNING 90 tablet 5 desogestrel-ethinyl estradiol (Apri) 0.15-30 MG-MCG tablet Take 1 tablet by mouth Daily Take 1 tablet by mouth daily 28 tablet 12 metFORMIN XR (Glucophage-XR) 500 MG 24 hr tablet Take 2 tablets (1,000 mg) by mouth in the evening. Take with meals Do not crush, chew, or split. 30 tablet 11 Multiple Vitamin (MULTIVITAMINS PO) Take 1 tablet by mouth 1 (one) time each day. Rimegepant Sulfate (Nurtec) 75 MG tablet dispersible Take 1 tablet by mouth See administration instructions Every other day as needed for migraines. 8 tablet 5 [DISCONTINUED] amphetamine-dextroamphetamine (Adderall) 30 MG tablet Take 1 tablet (30 mg) by mouth 1 (one) time each day at the same time 30 tablet 0 [DISCONTINUED] desogestrel-ethinyl estradiol (Apri) 0.15-30 MG-MCG tablet Take 1 tablet by mouth Daily for 28 days Take 1 tablet by mouth daily 28 tablet 11 [DISCONTINUED] metFORMIN XR (Glucophage-XR) 500 MG 24 hr tablet Take 1 tablet (500 mg) by mouth in the evening. Take with meals Do not crush, chew, or split. 30 tablet 11 [DISCONTINUED] tiZANidine (Zanaflex) 4 MG tablet Take 1 tablet (4 mg) by mouth every 12 (twelve) hours if needed for muscle spasms for up to 10 days 20 tablet 0 No current facility-administered medications on file prior [...] Diagnosis Date ADHD (attention deficit hyperactivity disorder) (CMS/HCC) Anxiety Back abscess 2016 Depression (CMS/HCC) Migraines (CMS/HCC) Neurocardiogenic syncope Obesity (BMI 30-39.9) Stomach problems Vitamin D deficiency Past Surgical History: Procedure Laterality Date GALLBLADDER SURGERY 2016 Visit Vitals BP 110/68 Pulse 95 Ht 5' 7 Wt 176 lb SpO2 98% BMI 27.57 kg/m OB Status Having periods Smoking Status Never BSA 1.94 m Review of Systems Constitutional: Negative for chills, fatigue and fever. Respiratory: Negative for cough, shortness of breath and wheezing. Cardiovascular: Negative for chest pain, palpitations and leg swelling. Gastrointestinal: Negative for abdominal pain, constipation, diarrhea, nausea and vomiting. Musculoskeletal: Positive for neck pain. Skin: Negative for rash. Objective Physical Exam Constitutional: General: She is [...] rhonchi or rales. Musculoskeletal: Cervical back: Spasms present. Thoracic back: Spasms present. Comments: Spasms improved from previous Skin: General: Skin is warm and dry. Neurological: General: No focal deficit present. Mental Status: She is alert and oriented to person, place, and time. Psychiatric: Mood and Affect: Mood normal. Behavior: Behavior normal. Assessment/Plan Diagnoses and all orders for this visit: Neck pain Patient is still planning to do more Physical Therapy after the first of the year. Has found it very helpful. Attention deficit hyperactivity disorder (ADHD), unspecified ADHD type (CMS/HCC) - amphetamine-dextroamphetamine (Adderall) 30 MG tablet; Take 1 tablet (30 mg) by mouth 1 (one) time each day at the same time Medication choice and dosage is appropriate for patient's current medical conditions. Patient will continue to be required to be seen in our office at least every three months for monitoring. At each follow up visit I will reassess the patient's need for the medication. Patient is to have this medication prescribed only through this office. Failure to follow the rules and regulations will result in tapering and discontinuation of medications if applicable. Patient verbalized understanding. OARRS Report was reviewed for this patient. Trapezius muscle spasm - tiZANidine (Zanaflex) 4 MG tablet; Take 1 tablet (4 mg) by mouth every 12 (twelve) hours if needed for muscle spasms for up to 10 days Refill provided on the above for pt to continue to take as needed. Continue gentle heat to area, gentle stretches. Follow up in about 3 months (around 05/12/2024) for Medication Follow Up. documented in this encounter [facility] 02-09-2024 Telephone encount er Note My Chart message for x-ray results. [facility] 02-09-2024 Miscellaneous Notes Formattin g of this note might be different from the original. My Chart message for x-ray results. documented in this encounter [facility] 02-09-2024 History of Presen t illness Narrative Reason for Appointment: Patient ID: Judy Montana is a 23 y.o. female who presents for No chief complaint on file. Patient presents today via telephone call for a telehealth appointment. Patients Phone #: [phone] (mobile) Current Medications: has a current medication list which includes the following prescription(s): adapalene-benzoyl peroxide, amphetamine-dextroamphetamine, bupropion xl, apri, metformin xr, multiple vitamin, nurtec, and tizanidine. Medical History: Active Ambulatory Problems Diagnosis Date Noted Alternating constipation and diarrhea 08/05/2022 Attention deficit hyperactivity disorder (CMS/HCC) 08/05/2022 Autonomic orthostatic hypotension 08/05/2022 Bruises easily 08/05/2022 Chronic fatigue 08/05/2022 Depression ([facility]/HCC) 08/05/2022 Mixed anxiety and depressive disorder 08/05/2022 GERD without esophagitis 08/05/2022 Gynecological disease 08/05/2022 Irritability 08/05/2022 Episodic migraine ([facility]/HCC) 08/05/2022 Mild episode of recurrent major depressive disorder (HCC) ([facility]) 08/05/2022 Overweight (BMI 25.0-29.9) 08/05/2022 Seasonal allergic rhinitis due to pollen 08/05/2022 Stomach problems 08/05/2022 Vaginal lump 08/05/2022 Vitamin D deficiency 08/05/2022 Neurocardiogenic syncope 09/12/2022 Closed fracture of patella 05/21/2013 Neck pain 06/09/2023 Pain in thoracic spine 06/09/2023 Trapezius muscle spasm 06/09/2023 Resolved Ambulatory Problems Diagnosis Date Noted Syncope and collapse 08/05/2022 Past Medical History: Diagnosis Date ADHD (attention deficit hyperactivity disorder) ([facility]) Anxiety Back abscess 2016 Migraines ([facility]) Obesity (BMI 30-39.9) Family History Problem Relation Name Age of Onset Interstitial cystitis Mother Mental illness Mother Mental illness Maternal Grandmother Diabetes Other Social History Tobacco Use Smoking status: Never Smokeless tobacco: Never Vaping Use Vaping status: Never Used Substance Use Topics Alcohol use: Never Comment: Caffeine: 1-2 cups/day coffee Drug use: Never Past Surgical History: Procedure Laterality Date GALLBLADDER SURGERY 2016 Allergies Allergen Reactions Zithromax [Azithromycin] Vitals: Estimated body mass index is 28.29 kg/m as calculated from the following: Height as of 12/25/23: 5' 7 . Weight as of 01/21/24: 180 lb 9.6 oz. BP: No LMP recorded. Assessment/Plan 05:28pm Called patient LMOM that provider was calling to discuss telehealth appointment. Will await patients call back. 02/11/24 2:18pm Provider called patient with no answer. Appointment will not be billed, but saved for documentation purpose. Once patient returns call she can be rescheduled. Documented by Elizabeth Alberts LPN on behalf of: Enid Miner DO documented in this encounter [facility] 02-05-2024 Telephone [facility] She called noting she'll be getting laid off work for 2 weeks and having car problems and is needing to cx remaining PT's scheduled. She said she hopes come new year all will be better; if needed she'll contact doctor and request a new referral be sent over. [facility] 02-05-2024 Miscellaneous Notes Formattin g of this note might be different from the original. She called noting she'll be getting laid off work for 2 weeks and having car problems and is needing to cx remaining PT's scheduled. She said she hopes come new year all will be better; if needed she'll contact doctor and request a new referral be sent over. documented in this encounter [facility] 01-28-2024 Telephone [facility] Note Called back and scheduled PT Eval today w/ Trisha Tadeo PT. [facility] 01-28-2024 Miscellaneous Notes Formattin g of this note might be different from the original. Called back and scheduled PT Eval today w/ Trisha Tadeo PT. Tried to contact to schedule PT eval; had to lm requesting a call back to do so. 40 visits / $20.00 copay documented in this encounter [facility] 01-28-2024 Telephone [facility] Note Tried to contact to schedule PT eval; had to lm requesting a call back to do so. 40 visits / $20.00 copay [facility] 01-21-2024 History of Presen t illness Narrative [...] Diagnosis Date ADHD (attention deficit hyperactivity disorder) ([facility]) Anxiety Back abscess 2016 Depression ([facility]) Migraines ([facility]) Neurocardiogenic syncope Obesity (BMI 30-39.9) Stomach problems [...] 02/18/2024) for Recheck. documented in this encounter [facility] 12-25-2023 History of Presen t illness Narrative Images from the original note were not included. HPI Follow-up Additional comments: ADHD- adderall Med Refill Additional comments: [facility] Last edited by Brigitte Fraire LPN on 12/25/2023 4:32 PM. Subjective Patient ID: Judy Montana is a 23 y.o. female who presents for Follow-up (ADHD- adderall) and Med Refill (Adderall--[facility]). Pt has no concerns Med Refill [...] Diagnosis Date ADHD (attention deficit hyperactivity disorder) (CMS/HCC) Anxiety Back abscess 2016 Depression (CMS/HCC) Migraines (CMS/HCC) Neurocardiogenic syncope Obesity (BMI 30-39.9) Stomach problems [...] follow-ups on file. documented in this encounter [facility] 12-25-2023 Instructions Vivien Bradshaw NP - 12/25/2023 4:30 PM EDT Adderall refill sent today. documented in this encounter [facility] 11-10-2023 History of Presen t illness Narrative [...] XL) 150 mg, Oral, Every morning Junel 1.5/30 1.5-30 MG-MCG tablet tablet 1 tablet, Oral, Every morning Multiple Vitamin (MULTIVITAMINS PO) 1 tablet, Oral, Daily Rimegepant Sulfate (Nurtec) 75 MG tablet dispersible 1 tablet, Oral, See admin instructions, Every other day as needed for migraines. ALLERGIES Allergies Allergen Reactions Zithromax [Azithromycin] PROBLEMS Active Ambulatory Problems Diagnosis Date Noted Alternating constipation and diarrhea 08/05/2022 Attention deficit hyperactivity disorder (CMS/HCC) 08/05/2022 Autonomic orthostatic hypotension 08/05/2022 Bruises easily 08/05/2022 Chronic fatigue 08/05/2022 Depression (CMS/HCC) 08/05/2022 Mixed anxiety and depressive disorder 08/05/2022 GERD without esophagitis 08/05/2022 Gynecological disease 08/05/2022 Irritability 08/05/2022 Episodic migraine (CMS/HCC) 08/05/2022 Mild episode of recurrent major depressive disorder (HCC) (CMS/HCC) 08/05/2022 Overweight (BMI 25.0-29.9) 08/05/2022 Seasonal allergic rhinitis due to pollen 08/05/2022 Stomach problems 08/05/2022 Vaginal lump 08/05/2022 Vitamin D deficiency 08/05/2022 Neurocardiogenic syncope 09/12/2022 Closed fracture of patella 05/21/2013 Neck pain 06/09/2023 Pain in thoracic spine 06/09/2023 Trapezius muscle spasm 06/09/2023 Resolved Ambulatory Problems Diagnosis Date Noted Syncope and collapse 08/05/2022 Past Medical History: Diagnosis Date ADHD (attention deficit hyperactivity disorder) ([facility]/HCC) Anxiety Back abscess 2016 Migraines (CMS/HCC) Obesity (BMI 30-39.9) HISTORY PAST MEDICAL HISTORY SOCIAL HISTORY Past Medical History: Diagnosis Date ADHD (attention deficit hyperactivity disorder) (CMS/HCC) Anxiety Back abscess 2016 Depression ([facility]) Migraines ([facility]) Neurocardiogenic syncope Obesity (BMI 30-39.9) Stomach problems [...] Surgical History: Procedure Laterality Date GALLBLADDER SURGERY 2015 REVIEW OF SYSTEMS Review of Systems: Review [...] nursing note reviewed. Exam conducted with a hims coder present. Vitals: Estimated body mass index is [...] Polycystic ovaries [facility] Diagnosis Irregular periods/menstrual cycles- Primary PCOS (polycystic ovarian syndrome) Polycystic ovaries [facility] Diagnosis Neck pain- Primary Cervicalgia Attention deficit hyperactivity disorder (ADHD), unspecified ADHD type (CMS/HCC) Trapezius muscle spasm [facility] Diagnosis Attention deficit hyperactivity disorder (ADHD), unspecified ADHD type (CMS/HCC) [facility] Diagnosis Acute left otitis media- Primary Attention deficit hyperactivity disorder (ADHD), unspecified ADHD type (CMS/HCC) Acute non-recurrent maxillary sinusitis [facility] Diagnosis Allergic conjunctivitis of both eyes- Primary Other chronic allergic conjunctivitis Attention deficit hyperactivity disorder (ADHD), unspecified ADHD type Vitamin D deficiency Chronic fatigue Other malaise and fatigue [facility] Rehabilitation - Outpatient (Routine) - Authorized Specialty Diagnoses / Procedures Referred By Skylar xiao Referred To Contact Physical Therapy Diagnoses Neck pain Trapezius muscle spasm Procedures HI OFFICE/OUTPATIENT [facility] MDM Raven Enrique PA [address] [facility] [address] [place] [address] Phone: tel: fax: Trisha Tadeo, PT [address] [facility] [address] [place] [address] Phone: tel: fax: Referral ID Status Reason Start Date Expiration Date Visits Requested Visits Authorized [id number] Authorized Specialty Services Required 4 07/19/2024 40 40 [facility] Summary Purpose Family History No Family History Records FoundNo Family History Records Found Advance Directives No Advanced Directives Records FoundNo Advanced Directives Records Found Additional Source Comments INFORMATION SOURCE (unrecogn ized section and content) DATE CREATED AUTHOR 08/04/2021 [facility] DATE CREATED AUTHOR AUTHOR'S ORGANIZ ATION 08/17/2024 [facility] Care Teams (unrecognized sec tion and content) Pharmacist In Charge Owner Relationship Specialty Start Date End Date Raven Enrique PA [address] [facility] [address] [place] [address] PCP - General Family Medicine 08/06/22 Pharmacist In Charge Owner Relationship Specialty Start Date End Date Raven Enrique PA [address] [facility] [address] [place] [address] PCP - General Family Medicine 08/06/22 Pharmacist In Charge Owner Relationship Specialty Start Date End Date Raven Enrique PA [address] [facility] [address] [place] [address] PCP - General Family Medicine 08/06/22 Pharmacist In Charge Owner Relationship Specialty Start Date End Date Raven Enrique PA [address] [facility] [address] [place] [address] PCP - General Family Medicine 08/06/22 Pharmacist In Charge Owner Relationship Specialty Start Date End Date Raven Enrique PA [address] [place] [address] [place] [address] PCP - General Family Medicine 08/06/22 Pharmacist In Charge Owner Relationship Specialty Start Date End Date Raven Enrique PA [address] [place] [address] [place] [address] PCP - General Family Medicine 08/06/22 Pharmacist In Charge Owner Relationship Specialty Start Date End Date Raven Enrique PA [address] [place] [address] [place] [address] PCP - General Family Medicine 08/06/22 Pharmacist In Charge Owner Relationship Specialty Start Date End Date Raven Enrique PA [address] [place] [address] [place] [address] PCP - General Family Medicine 08/06/22 Pharmacist In Charge Owner Relationship Specialty Start Date End Date Raven Enrique PA [address] [place] [address] [place] [address] PCP - General Family Medicine 08/06/22 Pharmacist In Charge Owner Relationship Specialty Start Date End Date Raven Enrique PA [address] [place] [address] [place] [address] PCP - General Family Medicine 08/06/22 Pharmacist In Charge Owner Relationship Specialty Start Date End Date Raven Enrique PA [address] [place] [address] [place] [address] PCP - General Family Medicine 08/06/22 Pharmacist In Charge Owner Relationship Specialty Start Date End Date Raven Enrique PA [address] [place] [address] [place] [address] PCP - General Family Medicine 08/06/22 Pharmacist In Charge Owner Relationship Specialty Start Date End Date Raven Enrique PA [address] [facility] [address] [place] [address] PCP - General [facility] Medicine 08/06/22 Pharmacist In Charge Owner Relationship Specialty Start Date End Date Raven Enrique PA [address] [place] [address] [place] [address] PCP - General [facility] Medicine 08/06/22 Pharmacist In Charge Owner Relationship Specialty Start Date End Date Raven Enrique PA [address] [facility] [address] [place] [address] PCP - General [facility] 08/06/22 Reason for Visit (unrecogniz ed section and content) Reason Comments Follow-up ADHD- adderall Med Refill [facility] Reason Onset Date Comments PT for neck / back 01/28/2024 Reason Comments Menstrual Problem Reason Onset Date Comments Cx PT out 02/05/2024 Reason Comments Neck Pain Reason Onset Date Comments Med Refill 04/07/2024 Reason Comments ADHD FOR RECORDS PERTAINING TO PATIENTS WHO ARE [...] BE BASED ON THE PRIMARY CLINICAL RECORDS. [employer] [facility]. provides no warranty or guarantee of the accuracy or completeness of information in this document.
[2024-10-15 12:08] LABS: Age Gdln ACOG Testing Note (.); IGP, rfx Aptima HPV ASCU Note (.)
== END 2024-10-11 19:11 | disposition home or self-care (01) ==
LOC: LAB 19:10
PROVIDERS: PCP Obstetrics & Gynecology; Visit Provider Obstetrics & Gynecology
DX: Z01.419 Encounter for gynecological examination (general) (routine) without abnormal findings (principal)
CPT/HCPCS: 88175